=== PATIENT | male | born 1980 | race Caucasian/White ===

== ENCOUNTER 2022-03-02 08:10 | Outpatient (CLI) | payer OTHER, SELFPAY ==
[2022-03-02 08:45] LABS: Absolute Lymphocyte Count 2.18 X10^3/uL (0.83-4.51); Absolute Neutrophil Count 3.6 X10^3/uL (2.0-7.7); Basophil% 1.5 % (0-1); Eosinophil# 0.49 X10^3/uL; Eosinophils% 7.1 % (0-5); Hemoglobin 7.6 g/dL (13.0-16.5); Lymphocyte # 2.18 X10^3/ul (0.83-4.51); Lymphocyte % 31.7 % (19-41); Mean Corp Hgb Conc 26.2 g/dL (32-36); Mean Corpuscular Hgb 17.1 pg (27.0-32.0); Mean Corpuscular Volume 65.3 fL (80-94); Mean Platelet Vol. 10.2 fl (6.2-12.0); Monocyte# 0.51 X10^3/uL; Monocyte% 7.4 % (0-10); NRBC Flagged by Analyzer 0 % (0-5); Neutrophil # 3.58 X10^3/uL (2.7-7.7); POSITIVE MORPHOLOGY YES; Platelet Count 343 K/mm3 (150-450); Red Blood Count 4.44 M/mm3 (4.6-6.2); White Blood Count 6.9 K/mm3 (4.4-11.0)
[2022-03-02 09:15] LABS: Hemoglobin A1c 5.1 % (3.8-5.6)
[2022-03-02 09:21] LABS: Differential Indicated SCAN CRITERIA MET
[2022-03-02 10:31] LABS: Anisocytosis 2+; Differential Comment SCANNED; Erythrocyte Sedimentation Rate 7 mm/hr (0-20); Hypochromasia 2+; Macrocytosis 1+; Microcytosis 1+
[2022-03-04 09:24] LABS: Vitamin B12 177 pg/mL (211-911)
[2022-03-12 08:11] LABS: Angiotensin Convert Enzyme 29 U/L (14-82)
[2022-03-13 10:27] LABS: Arsenic 7245 < 1 ug/L (0-9); Lead, Blood < 1 ug/dL (0-4); Mercury, Blood 85324 < 1.0 ug/L (0.0-14.9); Vitamin B1, Thiamine 154.2 nmol/L (66.5-200.0)
== END 2022-03-02 23:59 | disposition home or self-care (01) ==
PROVIDERS: PCP Ophthalmology; Visit Provider Ophthalmology
DX: H47.013 Ischemic optic neuropathy, bilateral (principal)
CPT/HCPCS: 36415; 82164; 82175; 82607; 82746; 83036; 83655; 83825; 84425; 85025; 85652

== ENCOUNTER 2022-03-11 16:18 | Outpatient (CLI) | payer OTHER, SELFPAY ==
--- NOTE | 2022-03-11 16:23 | MRI_ITS ---
EXAM: MR HEAD WITHOUT AND WITH INTRAVENOUS CONTRAST CLINICAL INDICATION: ISCHEMIC OPTIC NEUROPATHY BILATERALLY TECHNIQUE: Multiplanar and multisequence MR images of the brain were obtained without and with intravenous contrast. This report was created using [employer] technology. CONTRAST: IV 18mL DOTAREM COMPARISON: None. FINDINGS: BRAIN AND EXTRA-AXIAL SPACES: Unremarkable. No intra- or extra-axial hemorrhage. No evidence of acute infarct. No intracranial mass or mass effect. There is preservation of the odom/white matter interface. Posterior fossa structures are unremarkable. Ventricles are appropriate for age. No hydrocephalus. Basal cisterns are patent. SELLA: Unremarkable. Normal sella turcica, pituitary gland, infundibular stalk, optic chiasm and hypothalamus. AUDITORY SYSTEM: Unremarkable. The internal auditory canals are patent. BONES/JOINTS: Unremarkable. No discrete lytic or blastic abnormalities. SINUSES: Unremarkable as visualized. Clear. MASTOID AIR CELLS: Unremarkable as visualized. Clear. ORBITS: Unremarkable as visualized. Both globes, extraocular muscles, optic nerves and retrobulbar fat appear unremarkable. VASCULATURE: Unremarkable as visualized. Normal flow voids in the major intracranial circulation. MRI/Brain W/WO Contrast IMPRESSION: Negative MRI brain without and with intravenous contrast. Electronically Signed: Pankaj Jurado MD at 4:20 EDT ,
== END 2022-03-11 23:59 | disposition home or self-care (01) ==
LOC: MRI 16:19
PROVIDERS: PCP Family Medicine; Visit Provider Ophthalmology
DX: H47.013 Ischemic optic neuropathy, bilateral (principal)
CPT/HCPCS: 70553; A9575

== ENCOUNTER → 2022-12-20 | Outpatient (CLI) | payer OTHER, SELFPAY ==
[2022-12-20 16:28] LABS: Estradiol 19.8 pg/mL
[2022-12-27 11:09] LABS: Testosterone, Free 5.17 ng/dL (5.00-21.00)
[2022-12-27 19:22] LABS: Sex Hormone-binding Globulin 38.8 nmol/L (16.5-55.9); Testosterone, % Free 1.32 % (1.50-4.20); Testosterone, Total 392 ng/dL (264-916)
== END | disposition home or self-care (01) ==
LOC: LAB 15:20
PROVIDERS: PCP Ophthalmology; Visit Provider Registered Nurse
DX: E29.1 Testicular hypofunction (principal)
CPT/HCPCS: 36415; 82670; 84270; 84402; 84403

== ENCOUNTER → 2023-05-14 | Outpatient (CLI) | payer OTHER, SELFPAY ==
[2023-05-14 17:22] LABS: Hematocrit 51.2 % (40-54); Hemoglobin 16.4 g/dL (13.0-16.5)
[2023-05-14 18:42] LABS: ALB/GLOB Ratio 1.1 RATIO (0.9-2.4); AST(SGOT) 21 U/L (15-37); Alanine Aminotransfer ALT/SGPT 31 U/L (16-61); Albumin, Serum 3.6 g/dL (3.2-5.0); Alkaline Phosphatase 101 U/L (45-117); Anion Gap 8 (5-15); BUN 16 mg/dL (7-18); Calcium,Total 8.8 mg/dL (8.5-10.1); Chloride 112 mmol/L (98-107); Cholesterol 113 mg/dL (200); Creatinine, Serum 0.89 mg/dL (0.70-1.30); EST Glomerular Filtration Rate 99 mL/min (>60); Est Glom Filt Rate - Afr Amer 119 mL/min (>60); Estradiol 32.2 pg/mL; Follicle Stimulating Hormone < 0.2 mIU/mL; Globulin 3.2 g/dL (2.2-4.2); Glucose 92 mg/dL (74-106); High Density Lipoprotein 39 mg/dL; Luteinizing Hormone < 0.2 mIU/mL; Potassium 3.5 mmol/L (3.5-5.1); Prolactin 8.2 ng/mL; Protein, Total 6.8 g/dL (6.4-8.2); Sodium Level 143 mmol/L (136-145); Thyroid Stim Hormone (TSH) 1.47 uIU/mL (0.358-3.74); Triglycerides 54 mg/dL; Very Low Density Lipoprotein 11 mg/dL (5-40)
[2023-05-21 17:07] LABS: DHEA Sulfate 67.6 ug/dL (71.6-375.4); Sex Hormone-binding Globulin 36.6 nmol/L (16.5-55.9); Testosterone, % Free 3.82 % (1.50-4.20); Testosterone, Total > 1500 ng/dL (264-916)
== END | disposition home or self-care (01) ==
LOC: LAB 17:01
PROVIDERS: PCP Ophthalmology; Referring Provider Registered Nurse; Visit Provider Registered Nurse
DX: E29.1 Testicular hypofunction (principal); R53.83 Other fatigue; R68.82 Decreased libido; R63.5 Abnormal weight gain; R35.0 Frequency of micturition; R39.16 Straining to void
CPT/HCPCS: 36415; 80053; 80061; 82627; 82670; 83001; 83002; 84146; 84270; 84402; 84403; 84443; 85014; 85018; 82626

== ENCOUNTER → 2023-12-04 | Outpatient (CLI) | payer OTHER, SELFPAY ==
--- OUTSIDE RECORDS SUMMARY | 2023-12-04 17:09 | XMS RPT_ITS | CCD ---
Author Name Unknown Address [id number] [place] [address] Organization [facility] Care Team Providers Care Calibration Checker Name Role Phone Gloria Angel MD Primary Care Provider [phone] DARRION BARBA Referring Unavailable JEANNE, GLORIA Andrew Primary Care Unavailable GLORIA ANGEL Primary Care Unavailable GLORIA ANGEL Primary Care Unavailable GERALD HECK Referring Unavailable GLORIA ANGEL Primary Care Unavailable GLORIA ANGEL Primary Care Unavailable MASCIGERALD Referring Unavailable GLORIA ANGEL Primary Care Unavailable GAYLA PRIEST Referring Unavailable MASCGERALD Irving Referring Unavailable GLORIA ANGEL Primary Care Unavailable GERALD HECK Referring Unavailable GLORIA ANGEL Primary Care Unavailable GERALD HECK Referring Unavailable JEANNE, GLORIA Andrew Primary Care Unavailable GERALD HECK Referring Unavailable GLORIA ANGEL Primary Care Unavailable GLORIA ANGEL Attending Unavailable GLORIA ANGEL Primary Care Unavailable Gloria Angel MD Primary Care Provider [phone] Allergies Allergy Classification Reported Allergen(s) Allergy Type Date of Onset Reaction(s) Facility (20 sources) ENVIRONMENTAL [Other] Propensity to adverse reactions [address] [place] [address] Work Phone: (1 source) OTHER; Translations: [OTHER] Propensity to adverse reactions (disorder) 5 [facility] Repository Medications Current Medications Medication Drug Class(es) Dates Sig (Normalized) Sig (Original) ferrous sulfate 325 mg oral tablet (20 sources) Start: 03-08-2022 End: 04-07-2022 take 1 tablet by mouth twice daily at mealtime ferrous sulfate 325 mg (65 mg iron) tablet Indications: Iron deficiency anemia, unspecified iron deficiency anemia type Take 1 tablet by mouth twice daily with meals. 60 tablet 5 03/08/2022 04/07/2022 Active Completed/Discontinued Medications Medication Drug Class(es) Dates Sig (Normalized) Sig (Original) albuterol 5 mg/ml inhalation solution (20 sources) beta2-Adrenergic Agonist Start: 03-02-2020 albuterol (PROVENTIL) 2.5 mg/0.5 mL nebulizer solution Indications: Extrinsic asthma without complication, unspecified asthma severity, unspecified whether persistent Use 0.5 mL via nebulizer every 4 hours as needed for Wheezing/Shortness of Breath. 3 Vial 3 03/02/2020 Active Problems Active Problems Problem Classification Problem Date Documented Da te Episodic/Chronic Asthma (20 sources) Allergic asthma; Translations: [Unspecified asthma, uncomplicated] Onset: 8 10-16-2018 Chronic Deficiency and other anemia (20 sources) Iron deficiency anemia due to blood loss; Translations: [Iron deficiency anemia secondary to blood loss (chronic)] Onset: 2 03-20-2022 Chronic Deficiency and other anemia (1 source) Iron deficiency anemia secondary to blood loss (chronic); Translations: [Iron deficiency anemia due to chronic blood loss] Onset: 2 Chronic Deficiency and other anemia (5 sources) Iron deficiency anemia; Translations: [Iron deficiency anemia, unspecified] Episodic Gastrointestinal hemorrhage (3 sources) Gastrointestinal hemorrhage; Translations: [Gastrointestinal hemorrhage, unspecified] Episodic Other and unspecified benign neoplasm (1 source) Lipoma (clinical); Translations: [Benign lipomatous neoplasm, unspecified] 06-12-2023 Episodic Other connective tissue disease (1 source) Mass of knee; Translations: [Other specified soft tissue disorders] Episodic Other gastrointestinal disorders (20 sources) Malabsorption - iron; Translations: [Intestinal malabsorption, unspecified] Onset: 2 03-20-2022 Chronic Other gastrointestinal disorders (1 source) Intestinal malabsorption, unspecified; Translations: [Iron malabsorption] Onset: 2 Chronic Other nervous system disorders (1 source) Abnormal sensation; Translations: [Other disturbances of skin sensation] Episodic Other screening for suspected conditions (not mental disorders or infectious disease) (1 source) Full blood count abnormal; Translations: [Other specified abnormal findings of blood chemistry] Episodic Other skin disorders (2 sources) Skin lesion; Translations: [Disorder of the skin and subcutaneous tissue, unspecified] Episodic Other upper respiratory disease (20 sources) Allergic rhinitis; Translations: [Allergic rhinitis, unspecified] Onset: 6 08-11-2017 Chronic Spondylosis; intervertebral disc disorders; other back problems (2 sources) Thoracic back pain; Translations: [Pain in thoracic spine] Onset: 3 Episodic Unclassified (1 source) Lumbar pain; Translations: [Lumbar pain] Onset: 3 Past or Other Problems Problem Classification Problem Date Documented Da te Episodic/Chronic Malaise and fatigue (5 sources) Fatigue; Translations: [Other fatigue] Onset: 10-31-2022 Episodic Nutritional deficiencies (20 sources) Cobalamin deficiency; Translations: [Deficiency of other specified B group vitamins] Onset: 03-20-2022 Episodic Viral infection (20 sources) Herpes simplex; Translations: [Herpesviral infection, unspecified] Onset: 01-28-2008 01-28-2008 Episodic Results Test Name Value Interpretation Reference Range Facil ity Vital Signs Date Time Vital Sign Value Performing Clinician Faci lity 06-12-2023 11:15-0400 Body weight 93.94 kg Gloria Angel MD Work Phone: [facility] 06-12-2023 11:15-0400 Diastolic blood pressure 80 mm[Hg] Gloria Angel MD Work Phone: [facility] 06-12-2023 11:15-0400 Heart rate 78 /min Gloria Angel MD Work Phone: [facility] 06-12-2023 11:15-0400 Respiratory rate 16 /min Gloria Angel MD Work Phone: [facility] 06-12-2023 11:15-0400 Systolic blood pressure 128 mm[Hg] Gloria Angel MD Work Phone: [facility] 03-27-2023 13:34-0400 Body temperature 97.81 [degF] Josh Pascual APRN.CNP Work Phone: [facility] 03-27-2023 13:34-0400 Body weight 98.34 kg [facility] CORRECTIONAL CASEWORK SPECIALIST.FOOT GATHERER Work Phone: [facility] 03-27-2023 13:34-0400 Diastolic blood pressure 86 mm[Hg] [facility] CORRECTIONAL CASEWORK SPECIALIST.FOOT GATHERER Work Phone: [facility] 03-27-2023 13:34-0400 Heart rate 86 /min Joshsaundra [facility] CORRECTIONAL CASEWORK SPECIALIST.FOOT GATHERER Work Phone: [facility] 03-27-2023 13:34-0400 Respiratory rate 18 /min [facility]saundra [facility] CORRECTIONAL CASEWORK SPECIALIST.FOOT GATHERER Work Phone: [facility] 03-27-2023 13:34-0400 SaO2% (BldA) [Mass fraction] 97 % [facility] CORRECTIONAL CASEWORK SPECIALIST.FOOT GATHERER Work Phone: [facility] 03-27-2023 13:34-0400 Systolic blood pressure 138 mm[Hg] [facility] CORRECTIONAL CASEWORK SPECIALIST.FOOT GATHERER Work Phone: [facility] 05-17-2022 14:40-0400 Body temperature 97.39 [degF] Gerald Masci DO Work Phone: [facility] 05-17-2022 14:40-0400 Body weight 87.54 kg Gerald Masci DO Work Phone: [facility] 05-17-2022 14:40-0400 Diastolic blood pressure 81 mm[Hg] Gerald Masci DO Work Phone: [facility] 05-17-2022 14:40-0400 Heart rate 65 /min Gerald Masci DO Work Phone: [facility] 05-17-2022 14:40-0400 Systolic blood pressure 123 mm[Hg] Gerald Masci DO Work Phone: [facility] 04-24-2022 14:42-0400 Body temperature 97.81 [degF] Treatment Wstr Work Phone: [facility] 04-24-2022 14:42-0400 Diastolic blood pressure 75 mm[Hg] Treatment Wstr Work Phone: [facility] 04-24-2022 14:42-0400 Heart rate 70 /min Treatment Wstr Work Phone: [facility] 04-24-2022 14:42-0400 Systolic blood pressure 135 mm[Hg] Treatment Wstr Work Phone: [facility] 04-19-2022 14:56-0400 Body temperature 98.4 [degF] Treatment Wstr Work Phone: [facility] 04-19-2022 14:56-0400 Diastolic blood pressure 78 mm[Hg] Treatment Wstr Work Phone: [facility] 04-19-2022 14:56-0400 Heart rate 75 /min Treatment Wstr Work Phone: [facility] 04-19-2022 14:56-0400 Respiratory rate 16 /min Treatment Wstr Work Phone: [facility] 04-19-2022 14:56-0400 SaO2% (BldA) [Mass fraction] 97 % Treatment Wstr Work Phone: [facility] 04-19-2022 14:56-0400 Systolic blood pressure 128 mm[Hg] Treatment Wstr Work Phone: [facility] 04-17-2022 15:11-0400 Body temperature 98.2 [degF] Treatment Wstr Work Phone: [facility] 04-17-2022 15:11-0400 Diastolic blood pressure 68 mm[Hg] Treatment Wstr Work Phone: [facility] 04-17-2022 15:11-0400 Systolic blood pressure 115 mm[Hg] Treatment Wstr Work Phone: [facility] 04-12-2022 15:22-0400 Body temperature 95.7 [degF] Treatment Wstr Work Phone: [facility] 04-12-2022 15:22-0400 Diastolic blood pressure 77 mm[Hg] Treatment Wstr Work Phone: [facility] 04-12-2022 15:22-0400 Heart rate 76 /min Treatment Wstr Work Phone: [facility] 04-12-2022 15:22-0400 Systolic blood pressure 118 mm[Hg] Treatment Wstr Work Phone: [facility] 04-08-2022 14:38-0400 Body temperature 97.5 [degF] Treatment Wstr Work Phone: [facility] 04-08-2022 14:38-0400 Diastolic blood pressure 68 mm[Hg] Treatment Wstr Work Phone: [facility] 04-08-2022 14:38-0400 Heart rate 60 /min Treatment Wstr Work Phone: [facility] 04-08-2022 14:38-0400 Respiratory rate 16 /min Treatment Wstr Work Phone: [facility] 04-08-2022 14:38-0400 Systolic blood pressure 112 mm[Hg] Treatment Wstr Work Phone: [facility] 04-08-2022 13:37-0400 Body height 177.8 cm Odalys Astrid PA-C Work Phone: [facility] 04-08-2022 13:37-0400 Body temperature 97.9 [degF] Odalys Astrid PA-C Work Phone: [facility] 04-08-2022 13:37-0400 Body weight 88.91 kg Odalys Astrid PA-C Work Phone: [facility] 04-08-2022 13:37-0400 Diastolic blood pressure 78 mm[Hg] Odalys Astrid PA-C Work Phone: [facility] 04-08-2022 13:37-0400 Heart rate 81 /min Odalys Astrid PA-C Work Phone: [facility] 04-08-2022 13:37-0400 SaO2% (BldA) [Mass fraction] 98 % Odalys Flax[place] PA-C Work Phone: [facility] 04-08-2022 13:37-0400 Systolic blood pressure 124 mm[Hg] Odalys Astrid PA-C Work Phone: [facility] 04-04-2022 15:00-0400 Body temperature 98.4 [degF] Treatment Wstr Work Phone: [facility] 04-04-2022 15:00-0400 Diastolic blood pressure 72 mm[Hg] Treatment Wstr Work Phone: [facility] 04-04-2022 15:00-0400 Heart rate 75 /min Treatment Wstr Work Phone: [facility] 04-04-2022 15:00-0400 Systolic blood pressure 118 mm[Hg] Treatment Wstr Work Phone: [facility] 04-02-2022 15:06-0400 Body temperature 98.01 [degF] Treatment Wstr Work Phone: [facility] 04-02-2022 15:06-0400 Diastolic blood pressure 77 mm[Hg] Treatment Wstr Work Phone: [facility] 04-02-2022 15:06-0400 Heart rate 82 /min Treatment Wstr Work Phone: [facility] 04-02-2022 15:06-0400 SaO2% (BldA) [Mass fraction] 99 % Treatment Wstr Work Phone: [facility] 04-02-2022 15:06-0400 Systolic blood pressure 128 mm[Hg] Treatment Wstr Work Phone: [facility] 03-26-2022 14:43-0400 Body temperature 97.7 [degF] Injection Wstr Work Phone: [facility] 03-26-2022 14:43-0400 Diastolic blood pressure 69 mm[Hg] Injection Wstr Work Phone: [facility] 03-26-2022 14:43-0400 Heart rate 81 /min Injection Wstr Work Phone: [facility] 03-26-2022 14:43-0400 Systolic blood pressure 126 mm[Hg] Injection Wstr Work Phone: [facility] 03-08-2022 13:58-0400 Body weight 86.18 kg Odalys Astrid PA-C Work Phone: [facility] 03-08-2022 13:58-0400 Diastolic blood pressure 84 mm[Hg] Odalys [place] PA-C Work Phone: [facility] 03-08-2022 13:58-0400 Heart rate 78 /min Odalys Astrid PA-C Work Phone: [facility] 03-08-2022 13:58-0400 SaO2% (BldA) [Mass fraction] 100 % Odalys Astrid PA-C Work Phone: [facility] 03-08-2022 13:58-0400 Systolic blood pressure 122 mm[Hg] Odalys Astrid PA-C Work Phone: [facility] 03-06-2022 16:24-0400 Body weight 86.36 kg Mitra Tannhof CORRECTIONAL CASEWORK SPECIALIST.FOOT GATHERER Work Phone: [facility] 03-06-2022 16:24-0400 Diastolic blood pressure 82 mm[Hg] Mitra Tannhof CORRECTIONAL CASEWORK SPECIALIST.FOOT GATHERER Work Phone: [facility] 03-06-2022 16:24-0400 Heart rate 78 /min Mitra Tannhof CORRECTIONAL CASEWORK SPECIALIST.FOOT GATHERER Work Phone: [facility] 03-06-2022 16:24-0400 Respiratory rate 16 /min Mitra Tannhof CORRECTIONAL CASEWORK SPECIALIST.FOOT GATHERER Work Phone: [facility] 03-06-2022 16:24-0400 Systolic blood pressure 138 mm[Hg] Mitra Tannhof CORRECTIONAL CASEWORK SPECIALIST.FOOT GATHERER Work Phone: [facility] 02-15-2022 14:19-0400 Body height 177.8 cm Janeth Phillip MD Work Phone: [facility] 02-15-2022 14:19-0400 Body temperature 97.39 [degF] Janeth Phillip MD Work Phone: [facility] 02-15-2022 14:19-0400 Body weight 85.37 kg Janeth Phillip MD Work Phone: [facility] 02-15-2022 14:19-0400 Diastolic blood pressure 80 mm[Hg] Janeth Phillip MD Work Phone: [facility] 02-15-2022 14:19-0400 Heart rate 88 /min Janeth Phillip MD Work Phone: [facility] 02-15-2022 14:19-0400 SaO2% (BldA) [Mass fraction] 99 % Janeth Phillip MD Work Phone: [facility] 02-15-2022 14:19-0400 Systolic blood pressure 130 mm[Hg] Janeth Phillip MD Work Phone: [facility] Encounters Encounter Date Encounter Type Care Provider Facility Start: 09-15-2023 ambulatory Gloria bell MD Work Phone: [facility] Procedures Date Procedure Procedure Detail Performing Clinician Start: 10-31-2022 Antibody screen DARRION BARBA Plan of Treatment Date Care Activity Detail Author Start: 03-28-2032 Colonoscopy COLONOSCOPY [facility] Start: 03-28-2032 COLORECTAL CANCER SCREENING COLORECTAL CANCER SCREENING [facility] Start: 03-07-2025 DIABETES SCREEN DIABETES SCREEN [facility] Start: 03-07-2025 Diabetes Screening Diabetes Screenin g [facility] Start: 06-12-2024 ANNUAL PCP TEAM MANAGER INTERNET FLORENTIN DISEASE VISIT ANNUAL PCP TEAM CHRONIC DISEASE VISIT [facility] Start: 06-12-2024 HEPATITIS C SCREENING HEPATITIS C [facility] Immunizations Immunization Date Immunization Notes Care Provider Fa michelle 09-21-2020 influenza virus vaccine, unspecified formulation Gloria Angel MD Work Phone: [facility] 10-24-2012 influenza virus vaccine, unspecified formulation Janeth Phillip MD Work Phone: [facility] Payers Date Payer Category Payer Private Health Insurance [employer] A ETNA CHOICE POS II [id number] 2011-Present [phone] [address] [place] [address] POS [id number] 2011 Private Health Insurance [id number] 2011 Private Health Insurance [id number] Social History Date Type Detail Facility Start: 01-21-2015 End: 03-27-2023 Tobacco smoking status NHIS Ex-smoker [facility] Work Phone: Start: 09-23-2003 End: 09-23-2011 History of tobacco use Current smoker [facility] Work Phone: Start: 09-23-2003 End: 09-23-2011 History of tobacco use Cigarette Smoker [facility] Work Phone: Start: 01-21-2015 End: 06-10-2023 Cigarettes smoked current (pack per day) - Reported 0.25 [facility] Start: 01-21-2015 End: 03-27-2023 Tobacco use and exposure Smokeless tobacco non-user [facility] Work Phone: Start: 02-15-2022 End: 03-08-2022 Alcohol intake Current non-drinker of alcohol (finding) [facility] Start: 1980 Sex Assigned At Not on file [facility] Start: 02-05-2022 End: 05-28-2022 Exposure to SARS-CoV-2 (event) Not sure [facility] Start: 03-05-2022 History SDOH Alcohol Frequency 2 [facility] Start: 03-05-2022 History SDOH Alcohol Std Drinks 1 [facility] Start: 03-05-2022 History SDOH Social Connections Phone 5 [facility] Start: 03-05-2022 History SDOH Social Connections Yazidism 3 [facility] Start: 03-05-2022 History SDOH Social Connections Living 8 [facility] Start: 04-01-2022 End: 06-12-2023 Alcohol intake Current drinker of alcohol (finding) [facility] Start: 03-28-2022 History SDOH Alcohol Comment rarely [facility] Start: 03-27-2023 Tobacco Comment ON RARE OCCASIONS [facility] Start: 06-10-2023 End: 06-12-2023 Social connection and isolation panel [facility] Do you belong to any clubs or organizations such as baptist groups, unions, fraternal or athletic groups, or school groups? No [facility] Are you now , , , , never or living with a partner? [facility] How often to you hav e a drink containing alcohol? 2-4 times a month [facility] How many standard dr inks containing alcohol do you have on a typical day? 1 or 2 [facility] How often do you hav e 6 or more drinks on 1 occasion? Never [facility] How hard is it for y ou to pay for the very basics like food, housing, medical care, and heating Somewhat hard [facility] Adult Depression Scr eening Assessment 0 [facility] Work Phone: Do you feel stress - tense, restless, nervous, or anxious, or unable to sleep at night because your mind is troubled all the time - these days [OSQ] Not at all [facility] (I/We) worried wheth er (my/our) food would run out before (I/we) got money to buy more. Never true [facility] Clinical Notes 02-15-2022 to 09-15-2023 Telephone Encounter - Claudio Lyman APRN.CNP - 09/15/2023 9:57 AM EDTTelephone Encounter - Yanelis Regan Ma - 09/15/2023 9:43 AM EDTTelephone Encounter - Angie Rubin LPN - 09/03/2023 4:52 PM EDT Note Date & Type Note Facility 09-15-2023 Miscellaneous Notes Sent The following approved medication requests have been transmitted electronically. Requested Prescriptions Signed Prescriptions Disp Refills fluticasone (FLONASE) 50 mcg/actuation nasal spray 16 mL 11 Sig: Use 2 Sprays in each nostril once daily. Claudio Lyman APRN.CNP documented in this encounter [facility] 09-15-2023 Miscellaneous Notes Pt notified via [employer] to check with pharmacy for refills. This was refilled for a year supply 09/04/23. Yanelis Regan Ma documented in this encounter [facility] 09-03-2023 Miscellaneous Notes Patient requests via MyChart refills as follows: Requested Prescriptions Pending Prescriptions Disp Refills fluticasone-salmeterol (ADVAIR DISKUS) 500-50 mcg/dose dsdv 60 Each 2 Sig: Inhale 1 Puff as instructed two times a day. PRATIMA: 06/12/23 NOV: None scheduled Angie Rubin LPN documented in this encounter [facility] 07-01-2023 Miscellaneous Notes PRATIMA: 06/12/23 with PCP NOV: No FM F/U scheduled at this time Last refill: 04/15/23 With 28 and 0 refills Nora Jacobsen MA documented in this encounter [facility] 06-12-2023 Note HNO ID: [id number] Author: Gloria Angel MD Service: ? Author Type: Physician Type: Progress Notes Filed: 06/12/2023 5:40 PM Note Text: Chief Complaint Patient presents with: Lump: Left side abdomen x 1-2 weeks HPI Mohit Flanagan is a 43 year old male who presents here today for lump. He has to work 25 years to retire, has 22 years in already but thinks he will work longer than 25 years. Pt c/o lump to left side abdomen just under rib cage that he noticed 1-2 weeks. It has not changed in size, no redness, no drainage, no pain. He stated about a week before he noticed the lump he had some discomfort around the belt line, would not call it pain. He states he wears a vest and sits a lot while at work so figured it was from that. The vest he wears does go around the area with the lump. He denies doing anything different with his job that would trigger the lump to start, has been wearing the vest for the last 22 years. Past medical history, appointments, medications, allergies reviewed. Previous Medical History PAST MEDICAL HISTORY Diagnosis Date Anemia 03/08/2022 Environmental allergies Patella fracture 2012 Unspecified asthma(493.90) Previous Surgical History PAST SURGICAL HISTORY Procedure Laterality Date 2D ECHO (EXEP) 05/2016 EF=62% no valve issues COLONOSCOPY 03/28/2022 repeat in 10 years EGD W/O BRSH SPEC VARICIES INJ 03/28/2022 FRACTURE SURGERY PAST SURGICAL HISTORY OF 1995 ORIF right femur PAST SURGICAL HISTORY OF 2003 ORIF right ankle, plate and several screws STRESS TEST 05/2016 WNL Family History FAMILY HISTORY Problem Relation Age of Onset Hypertension Mother Hypertension Father Lipids Father Asthma Father Alzheimer's Disease Maternal Grandmother Dementia Maternal Grandmother Prostate Cancer Maternal Grandfather other (cancer bone) Maternal Grandfather Asthma Paternal Grandmother Patient Allergies ALLERGIES Allergen Reactions Environmental [Othe* ANIMALS, DUST, GRASS Current Medications Current Outpatient Medications on File Prior to Visit Medication Sig fluticasone-salmeterol (ADVAIR DISKUS) 500-50 mcg/dose dsdv Inhale 1 Puff as instructed twice daily. cyclobenzaprine (FLEXERIL) 10 mg tablet Take 1 tablet by mouth three times daily as needed for muscle spasm. SUMAtriptan (IMITREX) 50 mg tablet Take one tablet with onset of symptoms, can repeat in 2 hours, max dose is 200 mg/day. cyanocobalamin 1,000 mcg/mL Inject 1 mL intramuscularly once every month. Insulin Syringe-Needle U-100 (BD INSULIN SYRINGE) 1 mL 25 x 1 syrg 1 Each once every month. folic acid 1 mg tablet TAKE 1 TABLET BY MOUTH EVERY DAY ferrous sulfate 325 mg (65 mg iron) tablet Take 325 mg by mouth twice daily. (Patient not taking: Reported on 03/27/2023) fluticasone (FLONASE) 50 mcg/actuation nasal spray SPRAY 2 SPRAYS INTO EACH NOSTRIL EVERY DAY triamcinolone (KENALOG) 0.025 % ointment Apply 1 application to affected area twice daily as needed. albuterol (PROVENTIL) 2.5 mg/0.5 mL nebulizer solution Use 0.5 mL via nebulizer every 4 hours as needed for Wheezing/Shortness of Breath. albuterol HFA (PROAIR HFA) 90 mcg/actuation inhaler Inhale 2 Puffs as instructed. Take 2 puffs every 4 hours as needed and 15 minutes prior to exercise No current facility-administered medications on file prior to visit. Social History Social History Tobacco Use Smoking status: Former Packs/day: 0.25 Years: 8.00 Total pack years: 2.00 Types: Cigarettes Start date: 09/23/2003 Quit date: 09/23/2011 Years since quittin.7 Smokeless tobacco: Never Tobacco comments: ON RARE OCCASIONS Vaping Use Vaping Use: Never used Substance Use Topics Alcohol use: Yes Comment: rarely Drug use: No EXAM: BP 128/80 Pulse 78 Resp 16 Wt 93.9 kg (207 lb 1.6 oz) BMI 29.72 kg/m? General Appearance: Well appearing, alert, in no acute distress, well-hydrated, well nourished.. Abdomen: fullness to the fatty layer, possible lipoma or trauma from wearing vest. Ill defined areas approx 3x4 cm, not tender Health Maintenance List HEPATITIS B(1 of 3 - 3-dose series) Never done COVID-19 VACCINE(1) Never done PNEUMOCOCCAL(1 - PCV) Never done HEPATITIS C SCREENING Never done HIV SCREENING Never done DTAP,TDAP,TD(1 - Tdap) Never done LIPID SCREEN due on 01/05/2019 DEPRESSION ASSESSMENT Never done ANNUAL PCP TEAM CHRONIC DISEASE VISIT due on 03/06/2023 INFLUENZA(1) due on 07/25/2023 DIABETES SCREEN due on 03/07/2025 COLORECTAL CANCER SCREENING due on 03/28/2032 SPIROMETRY Completed HPV VACCINE Aged Out Data reviewed None ASSESSMENT/PLAN: 1. Lipoma, unspecified site - ICD9: 214.9, ICD10: D17.9 No treatment Continue to monitor, notify if any changes Follow up as needed. I agree with the Chief Complaint, ROS, and Past Histories independently gathered by the clinical computer support specialist instructor and the remaining scribed note accu (more content not included)... [facility] 06-12-2023 History of Presen t illness Narrative Chief Complaint Patient presents with: Lump: Left side abdomen x 1-2 weeks HPI Mohitcait Flanagan is a 43 year old male who presents here today for lump. He has to work 25 years to retire, has 22 years in already but thinks he will work longer than 25 years. Pt c/o lump to left side abdomen just under rib cage that he noticed 1-2 weeks. It has not changed in size, no redness, no drainage, no pain. He stated about a week before he noticed the lump he had some discomfort around the belt line, would not call it pain. He states he wears a vest and sits a lot while at work so figured it was from that. The vest he wears does go around the area with the lump. He denies doing anything different with his job that would trigger the lump to start, has been wearing the vest for the last 22 years. Past medical history, appointments, medications, allergies reviewed. Previous Medical History PAST MEDICAL HISTORY Diagnosis Date Anemia 03/08/2022 Environmental allergies Patella fracture 2012 Unspecified asthma(493.90) Previous Surgical History PAST SURGICAL HISTORY Procedure Laterality Date 2D ECHO (EXEP) 05/2016 EF=62% no valve issues COLONOSCOPY 03/28/2022 repeat in 10 years EGD W/O BRSH SPEC VARICIES INJ 03/28/2022 FRACTURE SURGERY PAST SURGICAL HISTORY OF 1995 ORIF right femur PAST SURGICAL HISTORY OF 2003 ORIF right ankle, plate and several screws STRESS TEST 05/2016 WNL Family History FAMILY HISTORY Problem Relation Age of Onset Hypertension Mother Hypertension Father Lipids Father Asthma Father Alzheimer's Disease Maternal Grandmother Dementia Maternal Grandmother Prostate Cancer Maternal Grandfather other (cancer bone) Maternal Grandfather Asthma Paternal Grandmother Patient Allergies ALLERGIES Allergen Reactions Environmental [Othe* ANIMALS, DUST, GRASS Current Medications Current Outpatient Medications on File Prior to Visit Medication Sig fluticasone-salmeterol (ADVAIR DISKUS) 500-50 mcg/dose dsdv Inhale 1 Puff as instructed twice daily. cyclobenzaprine (FLEXERIL) 10 mg tablet Take 1 tablet by mouth three times daily as needed for muscle spasm. SUMAtriptan (IMITREX) 50 mg tablet Take one tablet with onset of symptoms, can repeat in 2 hours, max dose is 200 mg/day. cyanocobalamin 1,000 mcg/mL Inject 1 mL intramuscularly once every month. Insulin Syringe-Needle U-100 (BD INSULIN SYRINGE) 1 mL 25 x 1 syrg 1 Each once every month. folic acid 1 mg tablet TAKE 1 TABLET BY MOUTH EVERY DAY ferrous sulfate 325 mg (65 mg iron) tablet Take 325 mg by mouth twice daily. (Patient not taking: Reported on 03/27/2023) fluticasone (FLONASE) 50 mcg/actuation nasal spray SPRAY 2 SPRAYS INTO EACH NOSTRIL EVERY DAY triamcinolone (KENALOG) 0.025 % ointment Apply 1 application to affected area twice daily as needed. albuterol (PROVENTIL) 2.5 mg/0.5 mL nebulizer solution Use 0.5 mL via nebulizer every 4 hours as needed for Wheezing/Shortness of Breath. albuterol HFA (PROAIR HFA) 90 mcg/actuation inhaler Inhale 2 Puffs as instructed. Take 2 puffs every 4 hours as needed and 15 minutes prior to exercise No current facility-administered medications on file prior to visit. Social History Social History Tobacco Use Smoking status: Former Packs/day: 0.25 Years: 8.00 Total pack years: 2.00 Types: Cigarettes Start date: 09/23/2003 Quit date: 09/23/2011 Years since quittin.7 Smokeless tobacco: Never Tobacco comments: ON RARE OCCASIONS Vaping Use Vaping Use: Never used Substance Use Topics Alcohol use: Yes Comment: rarely Drug use: No EXAM: BP 128/80 Pulse 78 Resp 16 Wt 93.9 kg (207 lb 1.6 oz) BMI 29.72 kg/m General Appearance: Well appearing, alert, in no acute distress, well-hydrated, well nourished.. Abdomen: fullness to the fatty layer, possible lipoma or trauma from wearing vest. Ill defined areas approx 3x4 cm, not tender Health Maintenance List HEPATITIS B(1 of 3 - 3-dose series) Never done COVID-19 VACCINE(1) Never done PNEUMOCOCCAL(1 - PCV) Never done HEPATITIS C SCREENING Never done HIV SCREENING Never done DTAP,TDAP,TD(1 - Tdap) Never done LIPID SCREEN due on 01/05/2019 DEPRESSION ASSESSMENT Never done ANNUAL PCP TEAM CHRONIC DISEASE VISIT due on 03/06/2023 INFLUENZA(1) due on 07/25/2023 DIABETES SCREEN due on 03/07/2025 COLORECTAL CANCER SCREENING due on 03/28/2032 SPIROMETRY Completed HPV VACCINE Aged Out Data reviewed None ASSESSMENT/PLAN: 1. Lipoma, unspecified site - ICD9: 214.9, ICD10: D17.9 No treatment Continue to monitor, notify if any changes Follow up as needed. I agree with the Chief Complaint, ROS, and Past Histories independently gathered by the clinical computer support specialist instructor and the remaining scribed note accurately describes my personal service to the patient. Medical Decision Making: Problems: Low: Acute, uncomplicated illness or injury Risk: Low: Low risk from testing/treatment Medical Decision Making Level: 3 - Low Gloria Angel MD The documentation for this note was completed by Yanelis Regan Ma acting as scribe for Gloria Angel MD. June 12, 2023 11:24 AM. Yanelis Regan Ma documented in this encounter [facility] 04-15-2023 Note HNO ID: [id number] Author: RT Linnea(Aftab) Service: ? Author Type: Supervisor Pressing Department Type: Progress Notes Filed: 04/15/2023 4:30 PM Note Text: Radiology Service Progress Note PATIENT NAME: Mohit Flanagan DATE OF SERVICE: April 15, 2023 TIME: 4:22 PM PATIENT IDENTITY VERIFICATION COMPLETED USING TWO (2) IDENTIFIERS: Name and Date of confirmed by patient verbally. FALL SCREENING: Has the patient had 2 falls in the last year or 1 fall with injury or currently using an Ambulatory Assistive Device (Walker, Cane, Wheelchair, Crutches, etc.)? No PATIENT GENDER DATA: Male PATIENT RELEVANT IMPLANT DATA REVIEWED: Yes RADIOLOGY DEPARTMENT: General X-ray: Exam(s) Completed: Spine X-Ray(s): Thoracic and Lumbar AP / LAT / L5-S1 No L%-S1 ordered PERIPHERAL IV DATA: Not applicable SIGNED BY: RT Linnea(R) April 15, 2023 4:22 PM [facility] 04-15-2023 Note HNO ID: [id number] Author: Darrion Barba APRN.FOOT GATHERER Service: ? Author Type: Nurse Practitioner Type: Progress Notes Filed: 04/15/2023 5:17 PM Note Text: This note was created using NoteWriter. Subjective Mohit Flanagan is a 43 year old male. 43 year old male with PMH asthma, anemia and HSV presents for complaints of back pain. Acute onset 2 to 3 weeks ago States that he recalls States he felt a pull and pain with twisting But went away as quick as it came on States that evening he woke up with pain. Locates pain in diffuse left upper and lower backs Alternates between the two States seen here Placed on prednisone and muscle relaxer States prednisone and flexeril seemed to help. States he rode on the motorcycle yesterday. Endorses the pain remains. He cannot get in to primary care until mid April Family wanted me to come back again and get checked out He is requesting xrays. Denies saddle anesthesia, unilateral weakness, IV drug usage or gait disturbance. He is requesting refills on Abreva and Advair The history is provided by the patient. No english language learner teacher was used. Back Pain This is a new problem. The current episode started more than 1 week ago. The problem occurs constantly. The problem has not changed since onset.The pain is associated with twisting. The pain is present in the lumbar spine and thoracic spine. The quality of the pain is described as stabbing. The pain does not radiate. The pain is at a severity of 5/10. The pain is moderate. The symptoms are aggravated by bending, twisting and certain positions. The pain is The same all the time. Stiffness is present All day. Pertinent negatives include no chest pain, no fever, no numbness, no weight loss, no headaches, no abdominal pain, no abdominal swelling, no bowel incontinence, no perianal numbness, no bladder incontinence, no dysuria, no pelvic pain, no leg pain, no paresthesias, no paresis, no tingling and no weakness. He has tried muscle relaxants for the symptoms. The treatment provided moderate relief. Risk factors include obesity, lack of exercise and poor posture. PAST MEDICAL HISTORY Diagnosis Date Anemia 03/08/2022 Environmental allergies Patella fracture 2012 Unspecified asthma(493.90) PAST SURGICAL HISTORY Procedure Laterality Date 2D ECHO (EXEP) 05/2016 EF=62% no valve issues COLONOSCOPY 03/28/2022 repeat in 10 years EGD W/O BRSH SPEC VARICIES INJ 03/28/2022 FRACTURE SURGERY PAST SURGICAL HISTORY OF 1995 ORIF right femur PAST SURGICAL HISTORY OF 2003 ORIF right ankle, plate and several screws STRESS TEST 05/2016 WNL ALLERGIES Environmental [Other] MEDICATIONS SUMAtriptan (IMITREX) 50 mg tablet Take one tablet with onset of symptoms, can repeat in 2 hours, max dose is 200 mg/day. cyanocobalamin 1,000 mcg/mL Inject 1 mL intramuscularly once every month. Insulin Syringe-Needle U-100 (BD INSULIN SYRINGE) 1 mL 25 x 1 syrg 1 Each once every month. folic acid 1 mg tablet TAKE 1 TABLET BY MOUTH EVERY DAY fluticasone (FLONASE) 50 mcg/actuation nasal spray SPRAY 2 SPRAYS INTO EACH NOSTRIL EVERY DAY triamcinolone (KENALOG) 0.025 % ointment Apply 1 application to affected area twice daily as needed. albuterol (PROVENTIL) 2.5 mg/0.5 mL nebulizer solution Use 0.5 mL via nebulizer every 4 hours as needed for Wheezing/Shortness of Breath. albuterol HFA (PROAIR HFA) 90 mcg/actuation inhaler Inhale 2 Puffs as instructed. Take 2 puffs every 4 hours as needed and 15 minutes prior to exercise fluticasone-salmeterol (ADVAIR DISKUS) 500-50 mcg/dose dsdv Inhale 1 Puff as instructed twice daily. valACYclovir (VALTREX) 1 gram Take 2 tablets by mouth twice daily for 1 day. predniSONE (DELTASONE) 10 mg tablet Take 6 tabs for 3 days, then 4 tabs for 3 days, then 2 tabs for 3 days then 1 tab for 3 days with food. cyclobenzaprine (FLEXERIL) 10 mg tablet Take 1 tablet by mouth three times daily as needed for muscle spasm. ferrous sulfate 325 mg (65 mg iron) tablet Take 325 mg by mouth twice daily. (Patient not taking: Reported on 03/27/2023) FAMILY HISTORY Problem Relation Age of Onset Hypertension Mother Hypertension Father Lipids Father Asthma Father Alzheimer's Disease Maternal Grandmother Dementia Maternal Grandmother Prostate Cancer Maternal Grandfather other (cancer bone) Maternal Grandfather Asthma Paternal Grandmother Social History Tobacco Use Smoking status: Former Packs/day: 0.25 Years: 8.00 Pack years: 2.00 Types: Cigarettes Start date: 09/23/2003 Quit date: 09/23/2011 Years since quittin.5 Smokeless tobacco: Never Tobacco comments: ON RARE OCCASIONS Vaping Use Vaping Use: Never used Substance Use Topics Alcohol use: Yes Comment: rarely Drug use: No Review of Systems Constitutional: Negative for activity change, appetite change, chills, fever and weight loss. Eyes: Negative for pain, discharg (more content not included)... [facility] 03-31-2023 Miscellaneous Notes Patient has been identified by name and date of : Yes Requested Prescriptions Pending Prescriptions Disp Refills folic acid 1 mg tablet [Pharmacy Med Name: FOLIC ACID 1 MG TABLET] 90 tablet 3 Sig: TAKE 1 TABLET BY MOUTH EVERY DAY RX INSTRUCTIONS: Patient aware RX will be sent to pharmacy. No need to notify patient. Darlene Camp LPN documented in this encounter [facility] 03-27-2023 Note HNO ID: [id number] Author: Josh Pascual APRN.FOOT GATHERER Service: ? Author Type: Nurse Practitioner Type: Progress Notes Filed: 03/27/2023 2:08 PM Note Text: Subjective HPI Nontoxic-appearing male presents urgent care chief complaint back pain. Duration of symptoms 2 days. Associated symptoms mid back pain. Patient states he was getting ready for bed 2 days ago and noticed a sharp pain in his back. States pain did resolve but he did wake up in the middle the night with increased back pain. History of back pain similar to this. Has been using Tylenol NSAIDs this is helped some. Her pain currently is 3 out of 10. Denies any trauma fevers saddle anesthesia or incontinence. Denies any fever body aches chills productive cough chest pain shortness of breath pleuritic pain hemoptysis nausea vomiting abdominal pain change in bowel or bladder habits. Past medical history prescription medication use and allergies reviewed. .Patient presents with: Pain: Pt reported intermittent mid back pain x2 days, denied chest pain, fall, injury. PAST MEDICAL HISTORY Diagnosis Date Anemia 03/08/2022 Environmental allergies Patella fracture 2013 Unspecified asthma(493.90) PAST SURGICAL HISTORY Procedure Laterality Date 2D ECHO (EXEP) 05/2016 EF=62% no valve issues COLONOSCOPY 03/28/2022 repeat in 10 years EGD W/O RUST SPEC VARICIES INJ 03/28/2022 FRACTURE SURGERY PAST SURGICAL HISTORY OF 1995 ORIF right femur PAST SURGICAL HISTORY OF 2003 ORIF right ankle, plate and several screws STRESS TEST 05/2016 WNL ALLERGIES Environmental [Other] MEDICATIONS SUMAtriptan (IMITREX) 50 mg tablet Take one tablet with onset of symptoms, can repeat in 2 hours, max dose is 200 mg/day. cyanocobalamin 1,000 mcg/mL Inject 1 mL intramuscularly once every month. Insulin Syringe-Needle U-100 (BD INSULIN SYRINGE) 1 mL 25 x 1 syrg 1 Each once every month. folic acid 1 mg tablet Take 1 tablet by mouth once daily. fluticasone (FLONASE) 50 mcg/actuation nasal spray SPRAY 2 SPRAYS INTO EACH NOSTRIL EVERY DAY fluticasone-salmeterol (ADVAIR DISKUS) 500-50 mcg/dose dsdv Inhale 1 Puff as instructed twice daily. albuterol (PROVENTIL) 2.5 mg/0.5 mL nebulizer solution Use 0.5 mL via nebulizer every 4 hours as needed for Wheezing/Shortness of Breath. albuterol HFA (PROAIR HFA) 90 mcg/actuation inhaler Inhale 2 Puffs as instructed. Take 2 puffs every 4 hours as needed and 15 minutes prior to exercise ferrous sulfate 325 mg (65 mg iron) tablet Take 325 mg by mouth twice daily. (Patient not taking: Reported on 03/27/2023) triamcinolone (KENALOG) 0.025 % ointment Apply 1 application to affected area twice daily as needed. FAMILY HISTORY Problem Relation Age of Onset Hypertension Mother Hypertension Father Lipids Father Asthma Father Alzheimer's Disease Maternal Grandmother Dementia Maternal Grandmother Prostate Cancer Maternal Grandfather other (cancer bone) Maternal Grandfather Asthma Paternal Grandmother Social History Tobacco Use Smoking status: Former Packs/day: 0.25 Years: 8.00 Pack years: 2.00 Types: Cigarettes Start date: 09/23/2003 Quit date: 09/23/2011 Years since quittin.5 Smokeless tobacco: Never Tobacco comments: ON RARE OCCASIONS Vaping Use Vaping Use: Never used Substance Use Topics Alcohol use: Yes Comment: rarely Drug use: No BP 138/86 Pulse 86 Temp 36.6 ?C (97.8 ?F) (Tympanic) Resp 18 Wt 98.3 kg (216 lb 12.8 oz) SpO2 97% BMI 31.11 kg/m? Review of Systems Constitutional: Negative for chills, fever and malaise/fatigue. HENT: Negative for congestion, ear discharge, ear pain, sinus pain and sore throat. Eyes: Negative for blurred vision, pain, discharge and redness. Respiratory: Negative for cough, hemoptysis, sputum production, shortness of breath, wheezing and stridor. Cardiovascular: Negative for chest pain. Gastrointestinal: Negative for abdominal pain, diarrhea, nausea and vomiting. Musculoskeletal: Positive for back pain. Negative for falls, joint pain, myalgias and neck pain. Skin: Negative for itching and rash. Neurological: Negative for dizziness and headaches. Objective Physical Exam Constitutional: General: He is not in acute distress. Appearance: He is not diaphoretic. HENT: Head: Normocephalic. Nose: Nose normal. Eyes: Conjunctiva/sclera: Conjunctivae normal. Pupils: Pupils are equal, round, and reactive to light. Cardiovascular: Rate and Rhythm: Normal rate and regular rhythm. Heart sounds: Normal heart sounds. Pulmonary: Effort: Pulmonary effort is normal. No tachypnea, accessory muscle usage or respiratory distress. Breath sounds: Normal breath sounds. No stridor. No wheezing, rhonchi or rales. Musculoskeletal: Cervical back: Normal and normal range of motion. Thoracic back: Tenderness present. No swelling, edema, deformity, signs of trauma, lacerations or bony tenderness. (more content not included)... [facility] 03-27-2023 History of Presen t illness Narrative Images from the original note were not included. Subjective HPI Nontoxic-appearing male presents urgent care chief complaint back pain. Duration of symptoms 2 days. Associated symptoms mid back pain. Patient states he was getting ready for bed 2 days ago and noticed a sharp pain in his back. States pain did resolve but he did wake up in the middle the night with increased back pain. History of back pain similar to this. Has been using Tylenol NSAIDs this is helped some. Her pain currently is 3 out of 10. Denies any trauma fevers saddle anesthesia or incontinence. Denies any fever body aches chills productive cough chest pain shortness of breath pleuritic pain hemoptysis nausea vomiting abdominal pain change in bowel or bladder habits. Past medical history prescription medication use and allergies reviewed. .Patient presents with: Pain: Pt reported intermittent mid back pain x2 days, denied chest pain, fall, injury. PAST MEDICAL HISTORY Diagnosis Date Anemia 03/08/2022 Environmental allergies Patella fracture 2012 Unspecified asthma(493.90) PAST SURGICAL HISTORY Procedure Laterality Date 2D ECHO (EXEP) 05/2016 EF=62% no valve issues COLONOSCOPY 03/28/2022 repeat in 10 years EGD W/O BRSH SPEC VARICIES INJ 03/28/2022 FRACTURE SURGERY PAST SURGICAL HISTORY OF 1995 ORIF right femur PAST SURGICAL HISTORY OF 2003 ORIF right ankle, plate and several screws STRESS TEST 05/2016 WNL ALLERGIES Environmental [Other] MEDICATIONS SUMAtriptan (IMITREX) 50 mg tablet Take one tablet with onset of symptoms, can repeat in 2 hours, max dose is 200 mg/day. cyanocobalamin 1,000 mcg/mL Inject 1 mL intramuscularly once every month. Insulin Syringe-Needle U-100 (BD INSULIN SYRINGE) 1 mL 25 x 1 syrg 1 Each once every month. folic acid 1 mg tablet Take 1 tablet by mouth once daily. fluticasone (FLONASE) 50 mcg/actuation nasal spray SPRAY 2 SPRAYS INTO EACH NOSTRIL EVERY DAY fluticasone-salmeterol (ADVAIR DISKUS) 500-50 mcg/dose dsdv Inhale 1 Puff as instructed twice daily. albuterol (PROVENTIL) 2.5 mg/0.5 mL nebulizer solution Use 0.5 mL via nebulizer every 4 hours as needed for Wheezing/Shortness of Breath. albuterol HFA (PROAIR HFA) 90 mcg/actuation inhaler Inhale 2 Puffs as instructed. Take 2 puffs every 4 hours as needed and 15 minutes prior to exercise ferrous sulfate 325 mg (65 mg iron) tablet Take 325 mg by mouth twice daily. (Patient not taking: Reported on 03/27/2023) triamcinolone (KENALOG) 0.025 % ointment Apply 1 application to affected area twice daily as needed. FAMILY HISTORY Problem Relation Age of Onset Hypertension Mother Hypertension Father Lipids Father Asthma Father Alzheimer's Disease Maternal Grandmother Dementia Maternal Grandmother Prostate Cancer Maternal Grandfather other (cancer bone) Maternal Grandfather Asthma Paternal Grandmother Social History Tobacco Use Smoking status: Former Packs/day: 0.25 Years: 8.00 Pack years: 2.00 Types: Cigarettes Start date: 09/23/2003 Quit date: 09/23/2011 Years since quittin.5 Smokeless tobacco: Never Tobacco comments: ON RARE OCCASIONS Vaping Use Vaping Use: Never used Substance Use Topics Alcohol use: Yes Comment: rarely Drug use: No BP 138/86 Pulse 86 Temp 36.6 C (97.8 F) (Tympanic) Resp 18 Wt 98.3 kg (216 lb 12.8 oz) SpO2 97% BMI 31.11 kg/m Review of Systems Constitutional: Negative for chills, fever and malaise/fatigue. HENT: Negative for congestion, ear discharge, ear pain, sinus pain and sore throat. Eyes: Negative for blurred vision, pain, discharge and redness. Respiratory: Negative for cough, hemoptysis, sputum production, shortness of breath, wheezing and stridor. Cardiovascular: Negative for chest pain. Gastrointestinal: Negative for abdominal pain, diarrhea, nausea and vomiting. Musculoskeletal: Positive for back pain. Negative for falls, joint pain, myalgias and neck pain. Skin: Negative for itching and rash. Neurological: Negative for dizziness and headaches. Objective Physical Exam Constitutional: General: He is not in acute distress. Appearance: He is not diaphoretic. HENT: Head: Normocephalic. Nose: Nose normal. Eyes: Conjunctiva/sclera: Conjunctivae normal. Pupils: Pupils are equal, round, and reactive to light. Cardiovascular: Rate and Rhythm: Normal rate and regular rhythm. Heart sounds: Normal heart sounds. Pulmonary: Effort: Pulmonary effort is normal. No tachypnea, accessory muscle usage or respiratory distress. Breath sounds: Normal breath sounds. No stridor. No wheezing, rhonchi or rales. Musculoskeletal: Cervical back: Normal and normal range of motion. Thoracic back: Tenderness present. No swelling, edema, deformity, signs of trauma, lacerations or bony tenderness. Normal range of motion. No scoliosis. Lumbar back: No swelling, edema, deformity, signs of trauma, tenderness or bony tenderness. Normal range of motion. Negative right straight leg raise test and negative left straight leg raise test. Back: Comments: Pain with palpation to highlighted area. No redness. No drainage. No breaks in skin. No spinal tenderness. Able to rock on heels stand on toes Skin: General: Skin is warm and dry. Neurological: Mental Status: He is alert and oriented to person, place, and time. ASSESSMENT/PLAN: 1. Thoracic back pain, unspecified back pain laterality, unspecified chronicity - ICD9: 724.1, ICD10: M54.6 Diagnosed with left thoracic back pain. No spinal tenderness. No trauma. No saddle anesthesia or incontinence. Treat as muscle lumbar strain. Prednisone sent to pharmacy. Will not take with NSAIDs. Muscle relaxant sent to pharmacy. Will take at night only and do not drive or operate machinery. Patient was educated on supportive therapies. Patient will follow up with primary care provider as needed. Patient was instructed to immediately proceed to emergency room for any new, worsening, or symptoms lasting longer than anticipated. The patient's clinical presentation is otherwise unremarkable at this time. Based on exam and clinical finding, the patient is stable for discharge. Plan of care was discussed with patient. Patient verbalizes understanding and agrees to plan of care. This note was generated using [employer] software. It may contain errors in wording, punctuation, or spelling. Josh Pascual APRN.SUSI documented in this encounter [facility] 01-09-2023 Miscellaneous Notes Pt. Called back , he stated he was planning on giving B-12 injections to himself. Informed we would be more than willing to teach a friend or significant other on how to give injections. Pt. Said he would do some checking around for asstistance on administration. He didn't want to come in here to receive because he has to take 3 PTO hours every month from his employer and he doesn't want to have to do that. Darlene Camp LPN Left message on voicemail to contact office concerning b-12 injections. Darlene Camp LPN documented in this encounter [facility] 10-31-2022 Nurse Note Pt here for injection of B12. Given IM in right delt. Pt tolerated well. Sharon Grijalva LPN documented in this encounter [facility] 10-07-2022 Miscellaneous Notes Appointment notes updated. Joann Mai LPN documented in this encounter [facility] 09-19-2022 Miscellaneous Notes RX INSTRUCTIONS: Patient aware RX will be sent to pharmacy. No need to notify patient. Last OV: 03/06/22 with AT Last refill: 01/21/22 With 28 and 0 refills Follow up: No F/U scheduled in at this time Nora Jacobsen MA documented in this encounter [facility] 09-05-2022 Note HNO ID: [id number] Author: Sharon Grijalva LPN Service: ? Author Type: ? Type: Progress Notes Filed: 09/05/2022 2:05 PM Note Text: Pt here for injection of B12. Given IM in right . Pt tolerated well. Sharon Grijalva LPN [place] [facility] History of Presen t illness Narrative Pt here for injection of B12. Given IM in right . Pt tolerated well. Sharon Grijalva LPN documented in this encounter [facility] 08-08-2022 Note HNO ID: [id number] Author: Sharon Grijalva LPN Service: ? Author Type: ? Type: Progress Notes Filed: 08/08/2022 2:06 PM Note Text: Pt here for injection of B12. Given IM in left delt. Pt tolerated well. Sharon Grijalva LPN [facility] 08-08-2022 History of Presen t illness Narrative Pt here for injection of B12. Given IM in left delt. Pt tolerated well. Sharon Grijalva LPN documented in this encounter [facility] 07-11-2022 Nurse Note Pt here for injection of B12. Given IM in right delt. Pt tolerated well. Sharon Grijalva LPN documented in this encounter [facility] 06-13-2022 History of Presen t illness Narrative Pt here for injection of B12. Given IM in left delt. Pt tolerated well. Sharon Grijalva LPN documented in this encounter [facility] 05-20-2022 Instructions Coral Huffman MA - 05/20/2022 8:16 AM EDT Capsule Endoscopy Post Ingestion Patient Information Do not eat or drink for two (2) hours after you have swallowed the capsule endoscope. Two (2) hours after you have swallowed the capsule endoscope you may drink clear liquids like coffee and tea (without cream), cola drinks, apple juice, broth, and eat Jell-O or popsicles. Please do not consume anything red in color. You may also return to taking your routine medications. Four (4) hours after you have swallowed the capsule endoscope, you may return to your usual diet. You may return to your normal activities after ingesting the capsule. Please avoid vigorous exercise. You may operate electrical equipment while undergoing your capsule endoscopy. It is not likely that any household or office equipment will interfere with this examination. You may use cell phones, computers, remote TV appliances, microwaves, Btarget players and digital cameras. Because the capsule endoscopy equipment is somewhat ominous in appearance, we recommend you avoid the airport, bank and government buildings. Many museums use a similar technology for security, it is best to avoid these environments. Avoid other patients also undergoing capsule endoscopy. Although the transmission distance is limited, it is possible that your capsule images could be altered. You may not have an MRI (a test similar to an x-ray that uses magnets in the imaging process) while the capsule endoscope remains in your body. Do not schedule a capsule endoscope and an MRI for the same day. Should you require an MRI in the future and you have not seen the capsule evacuated in your stool, discuss this with your physician. An x-ray of your abdomen can show if the capsule has been evacuated. Remove your capsule endoscopy equipment at the time indicated by your procedure nurse. 1. Loosen the Velcro Belt (if you have adhesive patches on your abdomen-remove them). 2. The equipment will come off in one piece. 3. There is nothing to turn off or take apart. 4. Place all equipment in the bag provided. 5. Your nurse may ask you to return the equipment directly to the office. The capsule endoscope will pass naturally in your stool. It is not necessary to retrieve or return the capsule. The images are stored in the equipment you have worn on your belt. You may flush the used capsule down the bathroom toilet for disposal. In some instances, patients have passed the capsule endoscope during stooling while the capsule is still actively blinking . Do not be alarmed if this happens to you. You may dispose of the capsule in the same manner. If you stopped taking your oral Iron for this examination, you may resume taking it the day after your capsule examination. . Seek medical assistance if you develop extreme abdominal pain, bloating, fever, nausea and vomiting. These may be signs of obstruction and require medical intervention. During routine business hours you may call: After Business hours: [phone] have answering service contact your physician documented in this encounter [facility] 05-20-2022 History of Presen t illness Narrative Patient had a capsule endoscopy. Patient swallowed the capsule without any difficulty. Referring Provider: Reason for Capsule: Patient was given discharge instructions. Ingested capsule endoscope without difficulty at 8:15 AM on 05/20/2022. documented in this encounter [facility] 05-17-2022 History of Presen t illness Narrative Pt here for injection of B12. Given im in right delt. Pt tolerated well. For all other information regarding today, see today's OV note with Dr Heck. Sharon Grijalva LPN documented in this encounter [facility] 05-17-2022 History of Presen t illness Narrative Hematologic problem(s): 1) JEFF. 2) B12 deficiency. HPI: The patient is a 42-year-old male with past medical history significant for asthma and allergic rhinitis. Was evaluated for cataracts in 01/2021. Had long standing asthma and attributed to inhaled corticosteroids. Re-evaluated earlier this year. Was referred for blood test and MRI. Was told to see his PCP based on lab results. Component Latest Ref Rng & Units 03/07/2022 03/16/2022 WBC 3.70 - 11.00 k/uL 8.73 RBC 4.20 - 6.00 m/uL 4.43 Hemoglobin 13.0 - 17.0 g/dL 7.4 (L) Hematocrit 39.0 - 51.0 % 29.1 (L) MCV 80.0 - 100.0 fL 65.7 (L) MCH 26.0 - 34.0 pg 16.7 (L) MCHC 30.5 - 36.0 g/dL 25.4 (L) RDW-CV 11.5 - 15.0 % 21.2 (H) Platelet Count 150 - 400 k/uL 302 MPV 9.0 - 12.7 fL 10.5 Neut% % 64.9 Abs Neut (ANC) 1.45 - 7.50 k/uL 5.67 Lymph% % 23.7 Abs Lymph 1.00 - 4.00 k/uL 2.07 [place]% % 5.3 Abs [place] <0.87 k/uL 0.46 Eosin% % 4.5 Abs Eosin <0.46 k/uL 0.39 Baso% % 1.3 Abs Baso <0.11 k/uL 0.11 (H) Immature Gran % % 0.3 IMMATURE GRANS (ABS) <0.10 k/uL 0.03 NRBC /100 WBC 0.0 Absolute nRBC <0.01 k/uL <0.01 DTYPE Auto Protein, Total 6.3 - 8.0 g/dL 6.7 Albumin 3.9 - 4.9 g/dL 4.2 Calcium 8.5 - 10.2 mg/dL 9.1 Bilirubin, Total 0.2 - 1.3 mg/dL 0.3 Alkaline Phosphatase 38 - 113 U/L 145 (H) AST 14 - 40 U/L 23 ALT 10 - 54 U/L 20 Glucose 74 - 99 mg/dL 89 BUN 9 - 24 mg/dL 14 Creatinine 0.73 - 1.22 mg/dL 0.84 Sodium 136 - 144 mmol/L 143 Potassium 3.7 - 5.1 mmol/L 4.2 Chloride 97 - 105 mmol/L 107 (H) CO2 22 - 30 mmol/L 24 Anion Gap 9 - 18 mmol/L 12 eGFR >=60 mL/min/1.73m 110 Color Yellow Straw Clarity Clear Clear Glucose, Urine Negative Negative Bilirubin, Urine Negative Negative Ketones, Urine Negative Negative Specific [place], Ur 1.005 - 1.030 1.010 Hemoglobin/Blood,Ur Negative Negative pH, Urine 5.0 - 8.0 7.0 Protein, Urine Negative Negative Urobilinogen Negative Negative Nitrites Negative Negative Leukest Negative Negative WBC, Urine 0-5 /HPF 0-5 /HPF RBC, Urine 0-3 /HPF 0-3 /HPF Epithelial Cells /HPF Few Iron 41 - 186 ug/dL 12 (L) TIBC 232 - 386 ug/dL 433 (H) Transferrin Saturation 15 - 57 % 3 (L) Occult Blood, Stool Negative Positive (A) TSH 0.270 - 4.200 mIU/L 1.250 Vitamin B12 232-1,245 pg/mL 183 (L) Folate >4.7 ng/mL 7.4 Vitamin D 25 Hydroxy 31.0 - 80.0 ng/mL 51.9 Old records 05/22/2020 Hgb 9.9 g/dL. 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 Normal appetite. No reflux. Dysphagia for white rice and some breads forever. No nausea. No abdominal pain or bloating. Bowels move daily with formed stools. No signs overtly of GI bleeding. Taking oral iron for about a week. No side effects. No chronic PPI use. Presents for ongoing hematologic management. Interim history: He was started on B12 injections and received a course of parenteral iron. He had an EGD and colonoscopy on 03/28/2022. Gastric and duodenal mucosa was noted to be normal. Biopsies were obtained from the gastric mucosa. On colonoscopy was found to have nonbleeding internal hemorrhoids. The examination was otherwise normal. No specimens were collected. Repeat screening colonoscopy in 10 years was recommended. Pathology: A. Stomach, antrum , biopsy: - Gastric oxyntic-type mucosa with no significant pathologic change. - No intestinal metaplasia or morphologic evidence of Helicobacter pylori organisms. Not as fatigued in the evenings. Has noticed leg cramps resolved. Was diagnosed with lichen planus--multiple spots. Was told no cure and could be related to B12 deficiency and stress. Was given Rx for clobetasol. PMH, medications and allergies personally reviewed by me today. Any changes documented in appropriate section. ROS: Constitutional: Denies episodes of fever and night sweats. Not significantly fatigued. Neuro: Denies ROY, vertigo, dizziness and imbalance. Denies symptoms of neuropathy. HEENT: No recent change in voice, vision or hearing. Resp: Denies cough, wheeze and hemoptysis. Denies shortness of breath at rest. Denies COULTER. CVS: Denies exertional chest pain, PND, orthopnea and LE edema. GI: See HPI. : Denies dysuria or gross hematuria. No symptoms of bladder outlet obstruction. Endo: Denies hot flashes. Denies polyuria and polydipsia. Denies heat and cold intolerance. Musculoskeletal: Denies bone, back, joint and muscular pain. Derm: See above. Heme: Denies unusual bleeding and unexplained bruising. Psych: Normal mood. Social history: Non-smoker. Rare alcohol. One child--17 yo daughter. [place] for [employer] [facility] [employer]. Family history: Asthma. Father--Had B12 deficiency. Recently from kidney cancer at age 77. PGM--?Pernicious anemia. MGF--Prostate cancer. PHYSICAL EXAM: Vitals: Blood pressure 123/81, pulse 65, temperature 36.3 C (97.4 F), temperature source Temporal, weight 87.5 kg (193 lb). Well-appearing and in no acute distress. EYES: Sclerae are anicteric bilaterally. ENT: Oral mucosa is unremarkable. There is no sign of thrush or mucositis. LYMPHATIC: There is no palpable cervical, supraclavicular, axillary or inguinal adenopathy. RESPIRATORY: Inspiratory breath sounds are of normal intensity in all bui. No rales, wheezes or rhonchi. CARDIOVASCULAR: Rhythm is regular. Normal intensity S1/S2. ABDOMEN: The abdomen is nondistended. No organomegaly. No tenderness. Extremities: No swelling or edema. SKIN: Few scattered circular lesions--smaller ones dull erythema and larger one more psoriatic (right wrist). 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 No focal motor weakness. MUSCULOSKELETAL: No muscle wasting. LABS: Component Latest Ref Rng & Units 03/07/2022 04/12/2022 05/14/2022 WBC 3.70 - 11.00 k/uL 8.73 6.38 6.11 RBC 4.20 - 6.00 m/uL 4.43 4.61 5.22 Hemoglobin 13.0 - 17.0 g/dL 7.4 (L) 9.3 (L) 12.9 (L) Hematocrit 39.0 - 51.0 % 29.1 (L) 33.3 (L) 41.9 MCV 80.0 - 100.0 fL 65.7 (L) 72.2 (L) 80.3 MCH 26.0 - 34.0 pg 16.7 (L) 20.2 (L) 24.7 (L) MCHC 30.5 - 36.0 g/dL 25.4 (L) 27.9 (L) 30.8 RDW-CV 21.2 (H) 29.5 (H) Platelet Count 150 - 400 k/uL 302 171 209 MPV 10.5 Neut% % 64.9 59.7 60.0 Abs Neut (ANC) 1.45 - 7.50 k/uL 5.67 3.81 3.67 Lymph% % 23.7 29.6 30.6 Abs Lymph 1.00 - 4.00 k/uL 2.07 1.89 1.87 [place]% % 5.3 6.1 6.5 Abs [place] <0.87 k/uL 0.46 0.39 0.40 Eosin% % 4.5 3.0 2.0 Abs Eosin <0.46 k/uL 0.39 0.19 0.12 Baso% % 1.3 1.3 0.7 Abs Baso <0.11 k/uL 0.11 (H) 0.08 0.04 Immature Gran % % 0.3 0.3 0.2 IMMATURE GRANS (ABS) <0.10 k/uL 0.03 <0.03 <0.03 NRBC /100 WBC 0.0 0.0 0.0 Absolute nRBC <0.01 k/uL <0.01 <0.01 <0.01 Red Cell Morph Reviewed: see results of individual morphologies Anisocytosis Present Acanthocyte Few Ovalocytes Few RBC Fragments None Seen Few (A) DTYPE Auto Auto Iron 41 - 186 ug/dL 12 (L) 86 TIBC 232 - 386 ug/dL 433 (H) 336 Transferrin Saturation 15.0 - 57.0 % 3 (L) 25.6 Retic % 0.4 - 2.0 % 0.8 Abs Retic 0.018 - 0.100 M/uL 0.042 Vitamin B12 232-1,245 pg/mL 183 (L) Ferritin 30.3 - 565.7 ng/mL 113.0 ASSESSMENT/PLAN: (D50.0) Iron deficiency anemia due to chronic blood loss (primary encounter diagnosis) Assessment: -Patient had evidence of evolving anemia over the last 1 to 2 years prior to initial evaluation here.. -He had severe iron deficiency and heme positive stools. -EGD and colonoscopy revealed no source of GI blood loss. -Reviewed results and follow up plan. Plan: -Continue oral iron supplementation after capsule endoscopy as he tolerates it well. -Follow-up for capsule endoscopy. -CBC/Iron studies in 6 months. (E53.8) B12 deficiency Assessment: -EGD was unremarkable. -Biopsy revealed normal oxyntic type mucosa. Plan: -Continue folic acid. -Continue monthly B12 injections. -Could consider discontinuing B12 injections after a year and monitoring B12 periodically thereafter. Portions of this documentation were copied and pasted from previous office visit notes in order to provide a cohesive continuity of the history. The note has been reviewed and edited and updated as necessary. Gerald Heck, DO documented in this encounter [facility] 04-24-2022 History of Presen t illness Narrative NEW VIRTUAL VISIT I had a virtual visit with Mr. Flanagan today for evaluation of anemia. HISTORY: Patient was referred to me by Dr. Heck for ongoing anemia. Patient recently had an upper endoscopy and lower endoscopy by Dr. Hanson 03/28/2022. Upper endoscopy normal stomach biopsy unremarkable normal duodenum no specimens were collected. Colonoscopy normal, nonbleeding internal hemorrhoids no specimens collected.. Patient has been having ongoing anemia over the past few years recently heme positive stool test which led to the colonoscopy and EGD but no findings of GI bleed. Patient reports currently getting iron infusions and B12 injections. He reports he has a family history of pernicious anemia. Throughout his work-up for anemia patient denies ever having symptoms of upper GI complaints or lower GI complaints. The only symptom that he can report is fatigue but he thought this was due to aging. At times reports shortness of breath but he has underlining asthma reports his shortness of breath has never worsened. PAST MEDICAL HISTORY Diagnosis Date Anemia 03/08/2022 Environmental allergies Patella fracture 2012 Unspecified asthma(493.90) PAST SURGICAL HISTORY Procedure Laterality Date 2D ECHO (EXEP) 05/2016 EF=62% no valve issues COLONOSCOPY 03/28/2022 repeat in 10 years EGD W/O BRSH SPEC VARICIES INJ 03/28/2022 FRACTURE SURGERY PAST SURGICAL HISTORY OF 1995 ORIF right femur PAST SURGICAL HISTORY OF 2003 ORIF right ankle, plate and several screws STRESS TEST 05/2016 WNL FAMILY HISTORY Problem Relation Age of Onset Hypertension Mother Hypertension Father Lipids Father Asthma Father Alzheimer's Disease Maternal Grandmother Dementia Maternal Grandmother Prostate Cancer Maternal Grandfather other (cancer bone) Maternal Grandfather Asthma Paternal Grandmother Social History Tobacco Use Smoking status: Former Smoker Packs/day: 0.25 Years: 8.00 Pack years: 2.00 Types: Cigarettes Start date: 09/23/2003 Quit date: 09/23/2011 Years since quittin.5 Smokeless tobacco: Never Used Tobacco comment: ON RARE OCCASIONS Vaping Use Vaping Use: Never used Substance Use Topics Alcohol use: Yes Comment: rarely Drug use: No Current Outpatient Medications Medication Sig Dispense Refill folic acid 1 mg tablet Take 1 tablet by mouth once daily. 90 tablet 3 fluticasone (FLONASE) 50 mcg/actuation nasal spray SPRAY 2 SPRAYS INTO EACH NOSTRIL EVERY DAY 16 mL 11 triamcinolone (KENALOG) 0.025 % ointment Apply 1 application to affected area twice daily as needed. 15 g 0 fluticasone-salmeterol (ADVAIR DISKUS) 500-50 mcg/dose dsdv Inhale 1 Puff as instructed twice daily. 60 Each 11 SUMAtriptan (IMITREX) 50 mg tablet Take one tablet with onset of symptoms, can repeat in 2 hours, max dose is 200 mg/day. 30 tablet 3 albuterol (PROVENTIL) 2.5 mg/0.5 mL nebulizer solution Use 0.5 mL via nebulizer every 4 hours as needed for Wheezing/Shortness of Breath. 3 Vial 3 albuterol HFA (PROAIR HFA) 90 mcg/actuation inhaler Inhale 2 Puffs as instructed. Take 2 puffs every 4 hours as needed and 15 minutes prior to exercise 3 Inhaler 3 No current facility-administered medications for this visit. ALLERGIES Allergen Reactions Environmental [Othe* ANIMALS, DUST, GRASS PHYSICAL FINDINGS OF NOTE: General Normal, healthy, cooperative, in no acute distress Able to interact verbally by video conference Psych ORIENTATION: normal to time place, person and situation Mood/Affect: AFFECT AND MOOD: Normal Head/Neuro Normal size and shape Facial appearance normal Pulmonary respiratory effort normal Abdominal Not performed Skin abnormal lesions not visualized Motor patient seen sitting with Normal appearing strength and coordination IMPRESSION (D50.0) Iron deficiency anemia due to chronic blood loss (K92.2) Gastrointestinal hemorrhage, unspecified gastrointestinal hemorrhage type RECOMMENDATION: Assessment/Plan (D50.0) Iron deficiency anemia due to chronic blood loss (K92.2) Gastrointestinal hemorrhage, unspecified gastrointestinal hemorrhage type 1. Iron deficiency anemia due to chronic blood loss Patient has been having ongoing anemia over the past few years recently heme positive stool test which led to the colonoscopy and EGD but no findings of GI bleed. - d/t ongoing anemia will ordered small bowel endoscopy to r/o source of anemia. - CONSULT TO GASTROENTEROLOGY - CAPSULE ENDOSCOPY SMALL BOWEL; Future 2. Gastrointestinal hemorrhage, unspecified gastrointestinal hemorrhage type - CONSULT TO GASTROENTEROLOGY - CAPSULE ENDOSCOPY SMALL BOWEL; Future Follow up in office 3 months/PRN. Recommended to please call office/go to ER if fever, chills, chest pain, SOB, diarrhea, nausea, emesis, worsening abdominal pain, dehydration occurs I spent a total of 30 minutes on the date of the service which included preparing to see the patient, [id number] patient care, completing clinical documentation, obtaining and/or reviewing separately obtained history, performing a medically appropriate examination, counseling and educating the patient/family/caregiver, ordering medications, tests, or procedures, communicating with other HCPs (not separately reported), independently interpreting results (not separately reported), communicating results to the patient/family/caregiver, and care coordination (not separately reported). Alicia Pugh APRN.CNP April 24, 2022 2:09 PM documented in this encounter [facility] 04-15-2022 Miscellaneous Notes Pt notified. He will call back tomorrow. He should have GI consult now; he has already seen Surgery and had EGD and colonoscopy done, and no source of bleeding was identified Gloria Angel MD After review of message below, Mitra Gustafson CNP is aware of GI bleed and has placed referral to General Surgery. Agree with Mitra's recommendation. Do we need GI referral? Chioma Rivas Ma Patient scheduled for 1st dose of iron 04/17, when pt is also in for B12. Pt stated he will schedule the last 4 doses here in office that day. Pt is also aware of contact pcp regarding GI bleeding. Radha Mcgee Left message for pt to return our call. Radha Mcgee Blood counts have increased but not back to normal. Schedule for 5 more doses of iron sucrose and check CBC/Iron studies/Retic count/B12 level at 5th infusion. I saw results of EGD/colonosocpy. No source of GI bleed. Recommend PCP's team refer him to gastroenterology for further thoughts on source of GI bleeding. Gerald Heck DO documented in this encounter [facility] 04-08-2022 Instructions Odalys Resendiz PA-C - 04/08/2022 2:24 PM EDT -Follow up with Dr. Heck regarding upcoming laboratory studies and further workup of anemia. If GI source of blood loss still suspected, would recommend referral to Gastro for capsule endoscopy of small bowel The following instructions are important for you related to your office visit today with the [facility]. INSTRUCTIONS FOLLOWING A NORMAL COLONOSCOPY 10YR I discussed with you the findings of your colonoscopy. Since there were no worrisome abnormalities, I recommend you undergo repeat endoscopic screening every 10 years. This is the current recommendation for colon cancer screening. If you note bleeding, change in bowel habits, or other suspicious colon related symptoms before that time, those symptoms should be evaluated as necessary. If you note any additional difficulties, questions, or concerns, you should contact our office immediately @ [phone] and ask to be transferred to the General Surgery department. documented in this encounter [facility] 04-08-2022 History of Presen t illness Narrative FOLLOW UP VISIT - ENDOSCOPY NAME: Mohit Ugalde Panchito [facility] NO.: [id number] DATE OF SERVICE: 04/08/2022 : 1980 REFERRING PHYSICIAN: Gloria Angel MD Mohit is a patient I am following for iron deficiency anemia. Dr. Hanson performed upper and lower endoscopy on 03/28/22. The patient was found to have regular Z-line, normal appearing stomach and duodenum on upper endoscopy. Colonoscopy showed non-bleeding internal hemorrhoids, otherwise normal. Pathology demonstrated: FINAL DIAGNOSIS A. Stomach, antrum , biopsy: - Gastric oxyntic-type mucosa with no significant pathologic change. - No intestinal metaplasia or morphologic evidence of Helicobacter pylori organisms. The patient notes no complaints since the procedure. VITALS: Blood pressure 124/78, pulse 81, temperature 36.6 C (97.9 F), height 177.8 cm (5' 10 ), weight 88.9 kg (196 lb), SpO2 98 %. General: patient is alert, cooperative, pleasant and in no acute distress On examination, the abdomen is benign. Assessment IMPRESSION: iron deficiency anemia. No signs of bleeding on EGD or colonoscopy PLAN: The operative findings and pathology report were reviewed with the patient, and the patient has had the opportunity to ask questions and have questions answered. If the patient notes any problems or changes in bowel function, the patient should contact me immediately. Otherwise I recommend follow up colonoscopy in 10 years. HM updated and recall letter generated. -Follow up with Dr. Heck. If concern remains for GI source of blood loss, would recommend referral to GI for capsule endoscopy to evaluate the small bowel Patient verbalized understanding of all above and agreed with the plan Diagnoses: (D50.9) Iron deficiency anemia, unspecified iron deficiency anemia type (primary encounter diagnosis) I spent a total of 23 minutes on the date of the service which included preparing to see the patient, [id number] patient care, completing clinical documentation, obtaining and/or reviewing separately obtained history, communicating with other HCPs (not separately reported), independently interpreting results (not separately reported) and communicating results to the patient/family/caregiver. Odalys Resendiz PA-C documented in this encounter [facility] 03-26-2022 Nurse Note Patient presents with: Imm/Inj Pt is identified by name and birthdate: Yes. Allergies and medications reviewed. Latex allergy? No. Does this patient have: Unplanned weight loss or gain of greater than 10 pounds, or a change of appetite over the last year? No Does the patient have any concerns about safety in the home/falls? Not at risk for falls Has the patient fallen in the past year? No Does the patient have difficulty performing or completing routine daily living activities? No Does this patient have concerns about personal safety? No Is patient having pain? Pain: No=0 (pain 0 on a scale of 0-10). Health Maintenance: Reviewed and updated. Does patient have MyChart access or Caregiver proxy: yes Pt/Caregiver willingness and readiness to learn assessed: Yes. Barriers: none Cyanocobalamin injection administered,right deltoid, tolerated well, no immediate adverse reactions noted. Darlene Camp LPN documented in this encounter [facility] 03-18-2022 Miscellaneous Notes TC to patient who verbalizes understanding of providers message. Patient states he scheduled colonoscopy this morning and he has no questions at this time. PRECIOUS Ramirez Can you please call the patient and let him know that his urine test all came back to normal. There was no blood or bacteria noted in the urine. I would still plan for colonoscopy with general surgery. Please let me know if he has any questions. Thank you. Mitra Gustafson APRN.SUSI documented in this encounter [facility] 03-11-2022 Miscellaneous Notes Patient notified of results, verbalizes understanding of instructions. Cindy Alegria LPN Can you please call the patient and let him know that his stool sample did come back positive for blood. I recommend that he keep upcoming appointment with general surgery for endoscopy/colonoscopy. Please let me know if he has any questions. Thank you. Mitra Gustafson APRN.SUSI documented in this encounter [facility] 03-08-2022 History of Presen t illness Narrative HISTORY AND PHYSICAL Mohit Flanagan 1980 REFERRING PHYSICIAN: Gloria Angel MD CHIEF COMPLAINT: Consult (EGD and colonoscopy consult, anemia) and Follow Up (suture removal) HPI: The patient is a 42 year old male referred for endoscopy due to findings of anemia on routine laboratory studies. Patient was being seen in our office today for a nurse visit to have sutures removed following excision of a mass on his lower leg, see separate nursing notes for details of that visit. PCP office had contacted gen surg to see if patient could be evaluated for anemia and to set up EGD and colonoscopy, and patient was scheduled for this consultation on same date as patient currently in office and agreeable to consult visit. Patient's laboratory studies showed: Component Latest Ref Rng & Units 03/07/2022 WBC 3.70 - 11.00 k/uL 8.73 RBC 4.20 - 6.00 m/uL 4.43 Hemoglobin 13.0 - 17.0 g/dL 7.4 (L) Hematocrit 39.0 - 51.0 % 29.1 (L) MCV 80.0 - 100.0 fL 65.7 (L) MCH 26.0 - 34.0 pg 16.7 (L) MCHC 30.5 - 36.0 g/dL 25.4 (L) RDW-CV 11.5 - 15.0 % 21.2 (H) Platelet Count 150 - 400 k/uL 302 MPV 9.0 - 12.7 fL 10.5 Neut% % 64.9 Abs Neut (ANC) 1.45 - 7.50 k/uL 5.67 Lymph% % 23.7 Abs Lymph 1.00 - 4.00 k/uL 2.07 [place]% % 5.3 Abs [place] <0.87 k/uL 0.46 Eosin% % 4.5 Abs Eosin <0.46 k/uL 0.39 Baso% % 1.3 Abs Baso <0.11 k/uL 0.11 (H) Immature Gran % % 0.3 IMMATURE GRANS (ABS) <0.10 k/uL 0.03 NRBC /100 WBC 0.0 Absolute nRBC <0.01 k/uL <0.01 DTYPE Auto Component Latest Ref Rng & Units 03/07/2022 Iron 41 - 186 ug/dL 12 (L) TIBC 232 - 386 ug/dL 433 (H) Transferrin Saturation 15 - 57 % 3 (L) Mohit notes no colon complaints. Patient denies any change in bowel habits, weight changes, blood in stools, black tarry stools or abdominal pain. Denies family history of colon issues. The patient notes no upper GI complaints. Mohit has not undergone prior endoscopy. Patient denies any new complaints. In particular he denies any dizziness, lightheadedness or worsening fatigue. Denies tinnitus. Patient denies chest pain, shortness of breath or recent hospitalizations. Denies problems with sedation in the past. PAST MEDICAL HISTORY Diagnosis Date Anemia 03/08/2022 Environmental allergies Patella fracture 2012 Unspecified asthma(493.90) PAST SURGICAL HISTORY Procedure Laterality Date 2D ECHO (EXEP) 05/2016 EF=62% no valve issues PAST SURGICAL HISTORY OF 1995 ORIF right femur PAST SURGICAL HISTORY OF 2003 ORIF right ankle, plate and several screws STRESS TEST 05/2016 WNL Current Outpatient Medications Medication Sig ferrous sulfate 325 mg (65 mg iron) tablet Take 1 tablet by mouth twice daily with meals. fluticasone (FLONASE) 50 mcg/actuation nasal spray SPRAY 2 SPRAYS INTO EACH NOSTRIL EVERY DAY triamcinolone (KENALOG) 0.025 % ointment Apply 1 application to affected area twice daily as needed. fluticasone-salmeterol (ADVAIR DISKUS) 500-50 mcg/dose dsdv Inhale 1 Puff as instructed twice daily. SUMAtriptan (IMITREX) 50 mg tablet Take one tablet with onset of symptoms, can repeat in 2 hours, max dose is 200 mg/day. albuterol (PROVENTIL) 2.5 mg/0.5 mL nebulizer solution Use 0.5 mL via nebulizer every 4 hours as needed for Wheezing/Shortness of Breath. albuterol HFA (PROAIR HFA) 90 mcg/actuation inhaler Inhale 2 Puffs as instructed. Take 2 puffs every 4 hours as needed and 15 minutes prior to exercise No current facility-administered medications for this visit. ALLERGIES: Environmental [Other] PERSONAL HISTORY: Social History Tobacco Use Smoking status: Former Smoker Packs/day: 0.25 Years: 8.00 Pack years: 2.00 Types: Cigarettes Start date: 09/23/2003 Quit date: 09/23/2011 Years since quittin.4 Smokeless tobacco: Never Used Tobacco comment: ON RARE OCCASIONS Vaping Use Vaping Use: Never used Substance Use Topics Alcohol use: No Drug use: No FAMILY HISTORY: FAMILY HISTORY Problem Relation Age of Onset Hypertension Mother Hypertension Father Lipids Father Asthma Father Asthma Maternal Grandmother REVIEW OF SYMPTOMS: The review of systems data was entered by the nurse and reviewed by me Nursing Notes: Janna Hernández RN 03/08/2022 1:49 PM Signed REVIEW OF SYSTEMS: General: The patient denies fatigue, denies weight loss, denies weight gain, denies feeling hot, and denies feelings of cold. Eyes: The patient denies glaucoma, denies eye injury/surgery, does not wear glasses or contacts. Ear/Nose/Throat: The patient NOTES allergies, NOTES hayfever, denies ear infections, and denies bloody noses. Cardiovascular: The patient denies chest pain, denies heart disease, denies high blood pressure,denies cardiac stent, denies prior heart attack, denies irregular heart beat, denies high cholesterol, denies poor circulation, denies heart failure, other cardiac issues, denies claudication, denies cold feet, denies peripheral arterial stent. Respiratory: The patient denies tuberculosis, denies pneumonia, denies frequent cough, denies pulmonary embolism, NOTES shortness of breath, and denies coughing up blood. Gastrointestinal: The patient denies difficulty swallowing, denies acid reflux, denies ulcers, denies vomiting, denies jaundice/hepatitis, denies gallbladder problems, denies black or tarry stools, denies hemorrhoids, denies bleeding from rectum, denies diverticulitis, denies constipation, denies diarrhea, denies loss of stool control, and denies hernias. Kidney/Bladder: The patient denies kidney stones, denies urine infections, and denies bloody urine. Skin: The patient denies a history of skin cancer, denies bleeding/changing moles, and denies a history of skin rash. Neurologic: The patient denies a history of epilepsy/convulsions, denies headaches, denies head/spinal injuries, and denies stroke/TIA. Psychiatric: The patient denies psychiatric medications, denies depression, and denies voices, denies substance abuse. Endocrine: The patient denies thyroid disorders, denies diabetes, and denies hormonal problems. Hematologic: The patient denies a history of bruising, denies bleeding, and NOTES anemia, denies blood clots. Infections: The patient denies a history of measles and mumps, denies rheumatic fever, and denies sexually transmitted diseases. Musculoskeletal: The patient denies back pain/injury, denies back problems, denies sciatica, denies knee/foot trouble, denies arthritis, or denies gout. When was patient's last Mammogram screening? N/A Last Colonoscopy: None SUKUMAR Sprague RN 03/08/2022 1:54 PM Signed Patient here for suture removal from skin lesion removal to right lateral knee. Incision line is clean, dry and sutures are intact. Sutures removed, edges are well approximated. Area cleansed and steri strips applied. Wound care reviewed with Mohit. Advised that we would not have to come back to see us, unless he has any additional problems. Patient voiced understanding. Dr. Phillip reviewed pathology with patient on 02/26/2022 via phone call. Janna Hernández RN I have confirmed and edited as necessary, the PFSH and ROS obtained by others. Odalys Resendiz PA-C PHYSICAL EXAMINATION: General: The patient is 42 year old male, well nourished, well hydrated in no acute distress. The patient is oriented to time, place, and person. VITALS: Blood pressure 122/84, pulse 78, weight 86.2 kg (190 lb), SpO2 100 %. Body mass index is 27.26 kg/m . HEENT: Normal cephalic, ataumatic, pupils are equally round, sclera are anicteric, mucous membranes are moist, oropharynx is clear. Neck has no masses, asymmetry or lymphadenopathy. Respiratory: Clear to auscultation and percussion. Normal respiratory excursion and pattern. Cardiac: Examination is regular rate and rhythm. Normal S1/S2 Abdominal exam: Soft, nontender, with no palpable masses. No hepatosplenomegaly. No palpable hernias. Extremities: no clubbing, cyanosis or edema. No adenopathy. LABORATORY VALUES: As Noted RADIOLOGIC STUDIES: As Noted Assessment IMPRESSION: iron deficiency anemia PLAN: I have reviewed my findings with the surgeon. Will plan for upper and lower endoscopy. We discussed the risks and benefits of the planned endoscopy. I have informed the patient that complications can occur including failure to complete the endoscopy and perforation. The patient had the opportunity to ask questions concerning the planned endoscopy. My staff has also explained the procedure to the patient in understandable terms and has given the patient printed material concerning the procedure. The patient freely consents to surgery. The patient was offered a surgery/procedure at a [facility] facility. I have counseled the patient regarding the risk of exposure to and/or potential harm posed by the COVID-19 virus with having a surgery/procedure at this time versus the risk of delaying the surgery/procedure. It is not possible to know either the risk of delaying the surgery or procedure or chance of getting an infection with perfect accuracy, but a joint decision was made between the patient and myself to proceed at this time with endoscopy. I plan to use Golytely bowel preparation I have explained to the patient the difference between IV conscious sedation and MAC anesthesia - and I have offered either, according to the patient's wishes. I have explained that with IV conscious sedation there is no anesthesia provider available and therefore there is a limitation of the amount of IV medications that can be given and that the patient may wake up in the middle of the procedure and/or experience pain/discomfort during the procedure. Further discussion was done and the patient was given the opportunity to ask questions and all questions were answered. The patient chooses MAC anesthesia Diagnoses: (D50.9) Iron deficiency anemia, unspecified iron deficiency anemia type (primary encounter diagnosis) (M79.89) Mass of soft tissue of knee Consultation requested by Dr. Angel for an opinion regarding iron deficiency anemia. My final recommendations will be communicated back to the requesting physician by way of shared Medical record or letter to requesting physician via US mail. Odalys Resendiz PA-C documented in this encounter [facility] 03-08-2022 Miscellaneous Notes 03-28-2022 COLON LODI documented in this encounter [facility] 03-08-2022 Nurse Note Patient here for suture removal from skin lesion removal to right lateral knee. Incision line is clean, dry and sutures are intact. Sutures removed, edges are well approximated. Area cleansed and steri strips applied. Wound care reviewed with Mohit. Advised that we would not have to come back to see us, unless he has any additional problems. Patient voiced understanding. Dr. Phillip reviewed pathology with patient on 02/26/2022 via phone call. Janna Hernández RN REVIEW OF SYSTEMS: General: The patient denies fatigue, denies weight loss, denies weight gain, denies feeling hot, and denies feelings of cold. Eyes: The patient denies glaucoma, denies eye injury/surgery, does not wear glasses or contacts. Ear/Nose/Throat: The patient NOTES allergies, NOTES hayfever, denies ear infections, and denies bloody noses. Cardiovascular: The patient denies chest pain, denies heart disease, denies high blood pressure,denies cardiac stent, denies prior heart attack, denies irregular heart beat, denies high cholesterol, denies poor circulation, denies heart failure, other cardiac issues, denies claudication, denies cold feet, denies peripheral arterial stent. Respiratory: The patient denies tuberculosis, denies pneumonia, denies frequent cough, denies pulmonary embolism, NOTES shortness of breath, and denies coughing up blood. Gastrointestinal: The patient denies difficulty swallowing, denies acid reflux, denies ulcers, denies vomiting, denies jaundice/hepatitis, denies gallbladder problems, denies black or tarry stools, denies hemorrhoids, denies bleeding from rectum, denies diverticulitis, denies constipation, denies diarrhea, denies loss of stool control, and denies hernias. Kidney/Bladder: The patient denies kidney stones, denies urine infections, and denies bloody urine. Skin: The patient denies a history of skin cancer, denies bleeding/changing moles, and denies a history of skin rash. Neurologic: The patient denies a history of epilepsy/convulsions, denies headaches, denies head/spinal injuries, and denies stroke/TIA. Psychiatric: The patient denies psychiatric medications, denies depression, and denies voices, denies substance abuse. Endocrine: The patient denies thyroid disorders, denies diabetes, and denies hormonal problems. Hematologic: The patient denies a history of bruising, denies bleeding, and NOTES anemia, denies blood clots. Infections: The patient denies a history of measles and mumps, denies rheumatic fever, and denies sexually transmitted diseases. Musculoskeletal: The patient denies back pain/injury, denies back problems, denies sciatica, denies knee/foot trouble, denies arthritis, or denies gout. When was patient's last Mammogram screening? N/A Last Colonoscopy: None Janna Hernández RN documented in this encounter [facility] 03-08-2022 Miscellaneous Notes Mitra Gustafson NP called. She has been taking care of Mohit Flanagan. Mohit had labwork completed and there are abnormalities on it and they are concerned that he is bleeding and would like him scoped. Mohit has a nurse visit today and Mitra wanted to know if you could see him today and if not, possibly early next week? Janna Hernández RN documented in this encounter [facility] 03-08-2022 Miscellaneous Notes I called and spoke to this patient over the telephone regarding his recent lab results. I am concerned for bleeding due to drop in hemoglobin/CBC and very low iron. Stool and urine testing are still pending at this time. Have placed a consult for general surgery to discuss a possible scope. Patient is agreeable to this plan. All questions answered. Mitra Gustafson APRN.CNP documented in this encounter [facility] 03-06-2022 Instructions Mitra Gustafson APRN.CNP - 03/06/2022 4:48 PM EDT 1.) Get labs and urine testing completed. 2.) May make appointment with hematology. 3.) Keep scheduled appointments with Eye Dr and MRI. 4.) Follow up pending test results. documented in this encounter [facility] 03-06-2022 History of Presen t illness Narrative This is a 42 year old male who presents today with: Patient presents with: Results HISTORY OF PRESENT ILLNESS: Mohit Flanagan is a 42 year old male. Patient presents with: Results Here in the office to discuss lab results from [facility], order by Dr. Heron Araiza in ophthalmology. Has upcoming MRI. About 1 year ago tried to get lasik. Went to lasik center and could not get vision to 20/20. Was sent to Dr. Naranjo (ophthalmology) for reevaluation. Thumb print on cataracts. Believed to be due to asthma medication usage. 1 year went by went back to [facility]. Vision did not get worse, was discussing possible cataracts surgery. Sent to [facility] for evaluation with Dr. Araiza. Optic nerves looked damaged. Concerns for past brain trauma that are causing loss of vision. Got labs completed on Friday, Dr. Araiza called and instructed to follow up with PCP. Has had increased fatigue over the past year but still active. No abdominal pain or blood in the stool. MRI on 03/13/2022 and folllow up with Dr. Araiza on 03/14/2022. CBC showed RBC low 4.44, Hgb low 7.6, HCT low 29.0 MCV low 65.3, MCH low at 17.1, MCHC low at 26.2, RD space CV high at 21.0, RDW SD high at 48.0. Eosinophils elevated at 7.1, and basophils 1.5. Vitamin B12 low at 177. The following labs are still pending lead, arsenic, angio-converting enzyme, mercury, vitamin B1 thiamine. A1c normal at 5.1, folate normal at 9.70. PAST MEDICAL HISTORY: PAST MEDICAL HISTORY Diagnosis Date Environmental allergies Patella fracture 2012 Unspecified asthma(493.90) PAST SURGICAL HISTORY Procedure Laterality Date 2D ECHO (EXEP) 05/2016 EF=62% no valve issues PAST SURGICAL HISTORY OF 1995 ORIF right femur PAST SURGICAL HISTORY OF 2003 ORIF right ankle, plate and several screws STRESS TEST 05/2016 WNL ALLERGIES Environmental [Other] MEDICATIONS Current Outpatient Medications Medication Sig fluticasone (FLONASE) 50 mcg/actuation nasal spray SPRAY 2 SPRAYS INTO EACH NOSTRIL EVERY DAY triamcinolone (KENALOG) 0.025 % ointment Apply 1 application to affected area twice daily as needed. fluticasone-salmeterol (ADVAIR DISKUS) 500-50 mcg/dose dsdv Inhale 1 Puff as instructed twice daily. SUMAtriptan (IMITREX) 50 mg tablet Take one tablet with onset of symptoms, can repeat in 2 hours, max dose is 200 mg/day. (Patient not taking: Reported on 02/04/2022 ) albuterol (PROVENTIL) 2.5 mg/0.5 mL nebulizer solution Use 0.5 mL via nebulizer every 4 hours as needed for Wheezing/Shortness of Breath. albuterol HFA (PROAIR HFA) 90 mcg/actuation inhaler Inhale 2 Puffs as instructed. Take 2 puffs every 4 hours as needed and 15 minutes prior to exercise No current facility-administered medications for this visit. FAMILY HISTORY Problem Relation Age of Onset Hypertension Mother Hypertension Father Lipids Father Asthma Father Asthma Maternal Grandmother Social History Tobacco Use Smoking status: Former Smoker Packs/day: 0.25 Years: 8.00 Pack years: 2.00 Types: Cigarettes Start date: 09/23/2003 Quit date: 09/23/2011 Years since quittin.4 Smokeless tobacco: Never Used Tobacco comment: ON RARE OCCASIONS Vaping Use Vaping Use: Never used Substance Use Topics Alcohol use: No Drug use: No REVIEW OF SYSTEMS GENERAL: + Fatigue HEENT: Negative for frequent or significant headaches, No changes in hearing or vision. NECK: Negative for lumps, goiter, pain and significant neck swelling RESPIRATORY: Negative for cough, hemoptysis, wheezing, dyspnea or shortness of breath CARDIOVASCULAR: Negative for chest pain, leg swelling, orthopnea, or palpitations GI: No nausea, vomiting, or diarrhea/constipation. No hematochezia/melena. No heartburn or reflux symptoms. : No history of dysuria, frequency or incontinence MUSCULOSKELETAL: Negative for joint pain or swelling. SKIN: Negative for lesions, rash, and itching ENDOCRINE: Negative for cold or heat intolerance, polyuria, polydipsia and goiter NEURO: No history of headaches, syncope, paralysis, seizures or tremors MOOD: Negative for depression, anxiety, or suicidal ideation. EXAM: BP 138/82 Pulse 78 Resp 16 Wt 86.4 kg (190 lb 6.4 oz) BMI 27.32 kg/m PHYSICAL EXAM: General Appearance: Well appearing, alert, in no acute distress, well-hydrated, well nourished. Skin: Skin color, texture, turgor normal, no suspicious rashes or lesions. Head: Normocephalic, no masses, lesions, tenderness or abnormalities. Eyes: Anicteric sclera. Pupils are equally round and reactive to light. Extraocular movements are intact. Lungs: Lungs clear to auscultation. No wheezing, rhonchi, rales. Heart: RRR without murmur, gallop, or rubs. No ectopy. Abdomen: Normal abdominal exam, Abdomen soft, non-tender. Bowel sounds normal. No masses, organomegaly, Negative CVA tenderness. Extremities: No deformities, edema, skin discoloration, clubbing or cyanosis. Good capillary refill. Musculoskeletal: No joint swelling, deformity, or tenderness. Peripheral Pulses: Normal, Capillary refill <2secs, strong peripheral pulses, Pulses palpable. ASSESSMENT/PLAN: 1. Fatigue, unspecified type - ICD9: 780.79, ICD10: R53.83\ - Get the following labs completed to further evaluate acute causes. - Concerns for blood loss due to CBC. - Get stool and urine testing completed. - Schedule appointment with hematology. - Red flag symptoms given to patient, he verbalizes understanding when to seek emergency care. - CBC + DIFF - COMP METABOLIC PANEL - IRON + TIBC - FECAL OCCULT BLOOD TEST - TSH BLD - VITAMIN B12 BLOOD - FOLATE SERUM - VITAMIN D 25 HYDROXY - CONSULT TO HEMATOLOGY - URINALYSIS, WITH MICROSCOPIC Follow-up pending test results or sooner as needed. Discussed treatment plan and patient voices understanding. Patient's questions answered appropriately. Medications and potential side effects were discussed and patient voices understanding. Mitra Gustafson APRN.CNP This note was partially generated using [employer] voice recognition system. Note was reviewed for accuracy. There may be minor misspellings or grammar miscues with [employer] voice recognition. documented in this encounter [facility] 02-26-2022 Miscellaneous Notes Told patient pathology report. He will come to the office to have the nurses remove the sutures in a couple of weeks. Patient acknowledges above. documented in this encounter [facility] 02-24-2022 Procedure note Procedure(s): REM LESIO TRUNK,ARM,LEG 1.1 -2.0CM Pre-Procedure Diagnose(s): Skin lesion; Dysesthesia Post-Procedure Diagnose(s): Lesion of subcutaneous tissue; Dysesthesia Description of procedure: After informed consent was obtained, patient was brought to the procedure room. Appropriate time out protocol was followed. Patient was placed in the supine position. The site of the lesion was then cleansed with a sterile surgical skin preparation. Appropriate sterile surgical drapes were placed. The skin and subcutaneous tissues at the site were then infiltrated with local anesthetic. A skin incision was made at the site in an elliptical fashion with a 15 blade scalpel. At first it was thought that the lesion incorporated the dermal elements of the skin. However, with dissection and better analysis of the lesion, this is noted to be an entirely subcutaneous skin lesion. The incision was carried down to the subcutaneous tissues. Dissection was done to separate the skin lesion from the surrounding subcutaneous tissues. The lesion was excised sharply down to the subcutaneous tissues. The lesion was 1.9 cm in size. The tissue was then removed and placed in formalin to be forwarded to pathology for analysis. Hemostasis was controlled by pressure. The skin edges were then reapproximated with interrupted 2-0 nylon suture in a vertical mattress fashion. Sterile dressing was applied. Patient tolerated procedure well. Complications: none EBL- minimal documented in this encounter [facility] 02-24-2022 History of Presen t illness Narrative Here for excision of skin lesion of right lower extremity that is causing patient occasional pain. He tolerated procedure well. Will follow up in the clinic for suture removal in two weeks. I will call patient with results of pathology. UNIVERSAL PROTOCOL / SAFETY CHECKLIST Procedure to be Performed: Incisional biopsy of skin lesion. Sign In: A Moment of CARE was completed. Personnel directly involved with the procedure wore the appropriate PPE (Personal Protective Equipment). No special equipment needed. Patient/Surrogate Stated/Verified: PATIENT VERIFIED(optional for EMERGENT procedures): Patient name, Date of , Relevant allergies and The intended procedure Time Out Communication: Intended patient and procedure match the source documents. Consent documented and matches the intended procedure. No relevant labs, photos, and/or imaging studies were applicable for review. Correct side/site marked and visible. Medications required for procedure verified. No fire risk assessment and interventions applicable. No implant(s) inserted. Sign Out: SIGN OUT (optional for EMERGENT procedures): All specimen containers correctly labeled. No instruments, equipment or retained foreign bodies applicable. Post-procedure follow-up management communicated and Plan of Care Visit completed when applicable. Janna Hernández RN documented in this encounter [facility] 02-22-2022 Instructions Janna Hernández RN - 02/22/2022 1:57 PM EDT The following instructions are important for you related to your office visit today with the [facility]. Instructions After SKIN EXCISION-SUTURES You can remove the dressing in five days. If the dressing becomes soaked or had significant drainage, the dressing should be changed. If there is minor bleeding from this skin edge, you should hold pressure on the incision until the bleeding stops. If there is continued bleeding, you should contact our office immediately. You do not need to leave a dressing on the wound after five days. If the wound shows signs of redness, inflammation, or purulent drainage, you should contact our office immediately. After that time, you may wash the wound with gentle soap and water. The wound should not be immersed in a pool, bathtub, or even hot tub. Dr. Phillip will call you in 7-10 days with the pathology results. We prefer to check the incision and remove the stitches in our office when ready. Please make an appointment to return to our office in 14 days. Please do not remove the stitches yourself without approval from our office. If you note any additional difficulties, questions, or concerns, you should contact our office immediately @ [phone] and ask to be transferred to the General Surgery department. documented in this encounter [facility] 02-15-2022 History of Presen t illness Narrative Mohit Flanagan 1980 REFERRING PHYSICIAN: Francesco Burrows MD CHIEF COMPLAINT: Consult (MASS SOFT TISSUE OF KNEE) HPI: The patient is a 42 year old male presents with skin/soft tissue lesion of right knee area.. He has noted this lesion for years . Recently, it has been developing discomfort when pressure applied to it, this is a new symptom. He notes no increase in size. He denies history of skin cancers. PAST MEDICAL HISTORY Diagnosis Date Environmental allergies Patella fracture 2012 Unspecified asthma(493.90) PAST SURGICAL HISTORY Procedure Laterality Date 2D ECHO (EXEP) 05/2016 EF=62% no valve issues PAST SURGICAL HISTORY OF 1995 ORIF right femur PAST SURGICAL HISTORY OF 2003 ORIF right ankle, plate and several screws STRESS TEST 05/2016 WNL Current Outpatient Medications Medication Sig fluticasone (FLONASE) 50 mcg/actuation nasal spray SPRAY 2 SPRAYS INTO EACH NOSTRIL EVERY DAY triamcinolone (KENALOG) 0.025 % ointment Apply 1 application to affected area twice daily as needed. fluticasone-salmeterol (ADVAIR DISKUS) 500-50 mcg/dose dsdv Inhale 1 Puff as instructed twice daily. albuterol (PROVENTIL) 2.5 mg/0.5 mL nebulizer solution Use 0.5 mL via nebulizer every 4 hours as needed for Wheezing/Shortness of Breath. albuterol HFA (PROAIR HFA) 90 mcg/actuation inhaler Inhale 2 Puffs as instructed. Take 2 puffs every 4 hours as needed and 15 minutes prior to exercise SUMAtriptan (IMITREX) 50 mg tablet Take one tablet with onset of symptoms, can repeat in 2 hours, max dose is 200 mg/day. (Patient not taking: Reported on 02/04/2022 ALLERGIES: Environmental [Other] PERSONAL HISTORY: Social History Tobacco Use Smoking status: Former Smoker Packs/day: 0.25 Years: 8.00 Pack years: 2.00 Types: Cigarettes Start date: 09/23/2003 Quit date: 09/23/2011 Years since quittin.4 Smokeless tobacco: Never Used Tobacco comment: ON RARE OCCASIONS Vaping Use Vaping Use: Never used Substance Use Topics Alcohol use: No Drug use: No FAMILY HISTORY Problem Relation Age of Onset Hypertension Mother Hypertension Father Lipids Father Asthma Father Asthma Maternal Grandmother The review of systems data was entered by the nurse and reviewed by pa Nursing Notes: Yesenia Serrano RN 02/15/2022 2:24 PM Signed REVIEW OF SYSTEMS: General: The patient denies fatigue, denies weight loss, denies weight gain, denies feeling hot, and denies feelings of cold. Eyes: The patient denies glaucoma, denies eye injury/surgery, does not wear glasses or contacts. Ear/Nose/Throat: The patient NOTES allergies, NOTES hayfever, denies ear infections, and denies bloody noses. Cardiovascular: The patient denies chest pain, denies heart disease, denies high blood pressure,denies cardiac stent, denies prior heart attack, denies irregular heart beat, denies high cholesterol, denies poor circulation, denies heart failure, other cardiac issues, denies claudication, denies cold feet, denies peripheral arterial stent. Respiratory: The patient denies tuberculosis, denies pneumonia, denies frequent cough, denies pulmonary embolism, NOTES shortness of breath, and denies coughing up blood. Gastrointestinal: The patient denies difficulty swallowing, denies acid reflux, denies ulcers, denies vomiting, denies jaundice/hepatitis, denies gallbladder problems, denies black or tarry stools, denies hemorrhoids, denies bleeding from rectum, denies diverticulitis, denies constipation, denies diarrhea, denies loss of stool control, and denies hernias. Kidney/Bladder: The patient denies kidney stones, denies urine infections, and denies bloody urine. Skin: The patient denies a history of skin cancer, denies bleeding/changing moles, and denies a history of skin rash. Neurologic: The patient denies a history of epilepsy/convulsions, denies headaches, denies head/spinal injuries, and denies stroke/TIA. Psychiatric: The patient denies psychiatric medications, denies depression, and denies voices, denies substance abuse. Endocrine: The patient denies thyroid disorders, denies diabetes, and denies hormonal problems. Hematologic: The patient denies a history of bruising, denies bleeding, and denies anemia, denies blood clots. Infections: The patient denies a history of measles and mumps, denies rheumatic fever, and denies sexually transmitted diseases. Musculoskeletal: The patient denies back pain/injury, denies back problems, denies sciatica, denies knee/foot trouble, denies arthritis, or denies gout. When was patient's last Mammogram screening? N/A Last Colonoscopy: Yesenia Serrano RN PHYSICAL EXAMINATION: General: The patient is 42 year old male, well nourished, well hydrated in no acute distress. The patient is oriented to time, place, and person. VITALS: Blood pressure 130/80, pulse 88, temperature 36.3 C (97.4 F), height 177.8 cm (5' 10 ), weight 85.4 kg (188 lb 3.2 oz), SpO2 99 %. Body mass index is 27 kg/m . Head: Normal cephalic, atraumatic Eyes: pupils are equally round, sclera are clear/anicteric Neck is supple with no tracheal deviation Respiratory: Normal respiratory excursion and pattern. Abdominal exam: benign Extremities: no clubbing, cyanosis or edema. Skin: 1.7 cm lesion raised fleshy colored lesion of lateral aspect of right knee area, appears dermatofibroma-like, tender to palpation Neuro: non focal Psych: normal mood Assessment IMPRESSION: skin/soft tissue lesion of right knee area PLAN: I have discussed the above with the patient. I have offered incisional biopsy of this skin lesion (incisional for unlikely chance that this is sarcoma). I have explained the procedure to the patient. To be done as an office procedure with local anesthesia. I have counseled the patient as to the risks of the procedure, including but not limited to: infection, bleeding, injury to any blood vessels/nerves, scar tissue, wound infections, complications of anesthesia, etc. the patient understands. The patient wishes to proceed. I have answered all questions to the patient s satisfaction and the patient has no further questions. I have confirmed and edited as necessary, the PFSH and ROS obtained by others. Consultation requested by for an opinion regarding patient's presentation. My final recommendations will be communicated back to the requesting physician by way of shared Medical record or letter to requesting physician via US mail. . Diagnoses: (L98.9) Skin lesion (primary encounter diagnosis) Return to Clinic: The patient is instructed to follow-up with me as above. Medical Decision Making: Problems: Moderate: New problem with uncertain prognosis Risk: Minimal: Minimal risk from testing/treatment Medical Decision Making Level: 2 - Straightforward Janeth Phillip MD documented in this encounter [facility] 02-15-2022 Nurse Note REVIEW OF SYSTEMS: General: The patient denies fatigue, denies weight loss, denies weight gain, denies feeling hot, and denies feelings of cold. Eyes: The patient denies glaucoma, denies eye injury/surgery, does not wear glasses or contacts. Ear/Nose/Throat: The patient NOTES allergies, NOTES hayfever, denies ear infections, and denies bloody noses. Cardiovascular: The patient denies chest pain, denies heart disease, denies high blood pressure,denies cardiac stent, denies prior heart attack, denies irregular heart beat, denies high cholesterol, denies poor circulation, denies heart failure, other cardiac issues, denies claudication, denies cold feet, denies peripheral arterial stent. Respiratory: The patient denies tuberculosis, denies pneumonia, denies frequent cough, denies pulmonary embolism, NOTES shortness of breath, and denies coughing up blood. Gastrointestinal: The patient denies difficulty swallowing, denies acid reflux, denies ulcers, denies vomiting, denies jaundice/hepatitis, denies gallbladder problems, denies black or tarry stools, denies hemorrhoids, denies bleeding from rectum, denies diverticulitis, denies constipation, denies diarrhea, denies loss of stool control, and denies hernias. Kidney/Bladder: The patient denies kidney stones, denies urine infections, and denies bloody urine. Skin: The patient denies a history of skin cancer, denies bleeding/changing moles, and denies a history of skin rash. Neurologic: The patient denies a history of epilepsy/convulsions, denies headaches, denies head/spinal injuries, and denies stroke/TIA. Psychiatric: The patient denies psychiatric medications, denies depression, and denies voices, denies substance abuse. Endocrine: The patient denies thyroid disorders, denies diabetes, and denies hormonal problems. Hematologic: The patient denies a history of bruising, denies bleeding, and denies anemia, denies blood clots. Infections: The patient denies a history of measles and mumps, denies rheumatic fever, and denies sexually transmitted diseases. Musculoskeletal: The patient denies back pain/injury, denies back problems, denies sciatica, denies knee/foot trouble, denies arthritis, or denies gout. When was patient's last Mammogram screening? N/A Last Colonoscopy: Yesenia Serrano RN documented in this encounter [facility] Skin lesion- Primary Unspecified disorder of skin and subcutaneous tissue Dysesthesia Disturbance of skin sensation [facility] Diagnosis Fatigue, unspecified type- Primary [facility] Diagnosis Abnormal CBC- Primary Other abnormal blood chemistry Iron deficiency anemia, unspecified iron deficiency anemia type [facility] Diagnosis Iron deficiency anemia, unspecified iron deficiency anemia type- Primary Mass of soft tissue of knee [facility] Diagnosis B12 deficiency- Primary Other B-complex deficiencies Iron deficiency anemia, unspecified iron deficiency anemia type [facility] Diagnosis B12 deficiency- Primary Other B-complex deficiencies Iron deficiency anemia due to chronic blood loss Iron deficiency anemia secondary to blood loss (chronic) Iron malabsorption Other specified intestinal malabsorption [facility] Diagnosis Iron deficiency anemia, unspecified iron deficiency anemia type- Primary [facility] Diagnosis Iron deficiency anemia due to chronic blood loss- Primary Iron deficiency anemia secondary to blood loss (chronic) Iron deficiency anemia, unspecified iron deficiency anemia type [facility] Diagnosis Iron deficiency anemia due to chronic blood loss- Primary Iron deficiency anemia secondary to blood loss (chronic) Iron malabsorption Other specified intestinal malabsorption [facility] Diagnosis B12 deficiency- Primary Other B-complex deficiencies Iron deficiency anemia due to chronic blood loss Iron deficiency anemia secondary to blood loss (chronic) Iron malabsorption Other specified intestinal malabsorption [facility] Diagnosis Iron deficiency anemia, unspecified iron deficiency anemia type- Primary [facility] Diagnosis Iron deficiency anemia due to chronic blood loss- Primary Iron deficiency anemia secondary to blood loss (chronic) Iron malabsorption Other specified intestinal malabsorption B12 deficiency Other B-complex deficiencies Fatigue, unspecified type [facility] Diagnosis Iron deficiency anemia due to chronic blood loss- Primary Iron deficiency anemia secondary to blood loss (chronic) Iron malabsorption Other specified intestinal malabsorption B12 deficiency Other B-complex deficiencies Fatigue, unspecified type [facility] Diagnosis Iron deficiency anemia due to chronic blood loss- Primary Iron deficiency anemia secondary to blood loss (chronic) Gastrointestinal hemorrhage, unspecified gastrointestinal hemorrhage type [facility] Diagnosis Iron deficiency anemia due to chronic blood loss- Primary Iron deficiency anemia secondary to blood loss (chronic) Iron malabsorption Other specified intestinal malabsorption [facility] Diagnosis Iron deficiency anemia due to chronic blood loss Iron deficiency anemia secondary to blood loss (chronic) Gastrointestinal hemorrhage, unspecified gastrointestinal hemorrhage type [facility] Diagnosis Iron deficiency anemia due to chronic blood loss- Primary Iron deficiency anemia secondary to blood loss (chronic) Iron malabsorption Other specified intestinal malabsorption [facility] Diagnosis Iron deficiency anemia due to chronic blood loss- Primary Iron deficiency anemia secondary to blood loss (chronic) Iron malabsorption Other specified intestinal malabsorption B12 deficiency Other B-complex deficiencies [facility] Diagnosis Iron deficiency anemia due to chronic blood loss- Primary Iron deficiency anemia secondary to blood loss (chronic) B12 deficiency Other B-complex deficiencies [facility] Diagnosis B12 deficiency- Primary Other B-complex deficiencies [facility] Diagnosis Iron deficiency anemia due to chronic blood loss Iron deficiency anemia secondary to blood loss (chronic) Gastrointestinal hemorrhage, unspecified gastrointestinal hemorrhage type [facility] Diagnosis B12 deficiency- Primary Other B-complex deficiencies Iron deficiency anemia due to chronic blood loss Iron deficiency anemia secondary to blood loss (chronic) [facility] Diagnosis Recurrent cold sores Herpes simplex without mention of complication [facility] Diagnosis Iron deficiency anemia due to chronic blood loss- Primary Iron deficiency anemia secondary to blood loss (chronic) Iron malabsorption Other specified intestinal malabsorption B12 deficiency Other B-complex deficiencies Fatigue, unspecified type [facility] Diagnosis B12 deficiency- Primary Other B-complex deficiencies [facility] Diagnosis Thoracic back pain, unspecified back pain laterality, unspecified chronicity- Primary [facility] Diagnosis Lipoma, unspecified site- Primary [facility] Diagnosis Recurrent cold sores Herpes simplex without mention of complication [facility] Diagnosis Mild intermittent extrinsic asthma without complication [facility] Diagnosis Mild intermittent extrinsic asthma without complication documented in this encounter [facility] for referral (narrative)* Outpatient Procedure (Routine) - Closed Specialty Diagnoses / Procedures Referred By Larissa t Referred To Contact [facility] Diagnoses Iron deficiency anemia, unspecified iron deficiency anemia type Procedures EGD DIAGNOSTIC EGD DIAGNOSTIC EGD DIAGNOSTIC ESOPHAGOGASTRODUODENOSC OPY TRANSORAL DIAGNOSTIC ESOPHAGOGASTRODUODENOSC OPY TRANSORAL DIAGNOSTIC ESOPHAGOGASTRODUODENOSC OPY TRANSORAL DIAGNOSTIC Odalys Resendiz PA-C [address] [place] [address] [facility] [address] [address] Referral ID Status Reason Start Date Expiration Date V isits Requested Visits Authorized [id number] Closed Auto-Generate d Referral 03/08/2022 03/08/2023 1 1 * Outpatient Procedure (Routine) - Closed Specialty Diagnoses / Procedures Referred By Contac t Referred To Contact [facility] Diagnoses Iron deficiency anemia, unspecified iron deficiency anemia type Procedures COLONOSCOPY DIAGNOSTIC COLONOSCOPY DIAGNOSTIC COLONOSCOPY DIAGNOSTIC COLONOSCOPY FLX DX W/COLLJ SPEC WHEN PFRMD COLONOSCOPY FLX DX W/COLLJ SPEC WHEN PFRMD COLONOSCOPY FLX DX W/COLLJ SPEC WHEN PFRMD Odalys Resendiz PA-C [address] [place], [place] [address] [place] [address] [facility] [address] [address] Referral ID Status Reason Start Date Expiration Date V isits Requested Visits Authorized [id number] Closed Auto-Generate d Referral 03/08/2022 03/08/2023 1 1 [facility] for referral (narrative)* Outpatient Procedure (Routine) - Pending Review Specialty Diagnoses / Procedures Referred By Contac t Referred To Contact [facility] Diagnoses Iron deficiency anemia due to chronic blood loss Gastrointestinal hemorrhage, unspecified gastrointestinal hemorrhage type Procedures CAPSULE ENDOSCOPY SMALL BOWEL GI TRC IMG INTRALUMINAL ESOPHAGUS-ILEUM W/I&R Alicia Pugh, CORRECTIONAL CASEWORK SPECIALIST.FOOT GATHERER [address] [facility] [place] [address] [facility] [address] [address] Referral ID Status Reason Start Date Expiration Date Visits Requested Visits Authorized [id number] Pending Review Auto-Generat ed Referral 04/24/2022 04/24/2023 1 1 [facility] Reason for Referral Specialty Diagnoses / Procedures Referred By Contac t Referred To Contact Hematology Diagnoses Fatigue, unspecified type Procedures CONSULT TO HEMATOLOGY OFFICE/OUTPATIENT [facility] 60-74 MINUTES Mitra Gustafson APRN.CNP [address] [place] [address] Referral ID Status Reason Start Date Expiration Date Visits Requested Visits Authorized [id number] Pending Review PCP Requested Referral 03/06/2022 03/06/2023 1 1 Specialty Diagnoses / Procedures Referred By Contac t Referred To Contact General Surgery Diagnoses Abnormal CBC Procedures CONSULT TO GENERAL SURGERY OFFICE/OUTPATIENT [facility] 60-74 MINUTES Mitra Gustafson APRN.CNP [address] [place] [address] Referral ID Status Reason Start Date Expiration Date Visits Requested Visits Authorized [id number] Pending Review PCP Requested Referral 03/08/2022 03/08/2023 1 1 Specialty Diagnoses / Procedures Referred By Contac t Referred To Contact Gastroenterology Diagnoses Iron deficiency anemia due to chronic blood loss Gastrointestinal hemorrhage, unspecified gastrointestinal hemorrhage type Procedures CONSULT TO GASTROENTEROLOGY OFFICE/OUTPATIENT [facility] MDM 60-74 MINUTES Gloria Angel MD [address] [place] [address] Referral ID Status Reason Start Date Expiration Date Visits Requested Visits Authorized [id number] Pending Review PCP Requested Referral 04/15/2022 04/15/2023 1 1 Medications Administered Section Inactive Administered Medications - up to 3 most recent administrations Medication Order MAR Action Action Date Dose Rate Site cyanocobalamin 1,000 mcg injection 1,000 mcg, INTRAMUSCULAR, ONCE, 1 dose, On Fri03/26/22 at 1500 Given 03/26/2022 2:45 PM EDT 1,000 mcg Arm , Right Inactive Administered Medications - up to 3 most recent administrations Medication Order MAR Action Action Date Dose Rate Site cyanocobalamin 1,000 mcg injection 1,000 mcg, INTRAMUSCULAR, ONCE, 1 dose, On Fri04/02/22 at 1530 Given 04/02/2022 3:25 PM EDT 1,000 mcg Arm, Left iron sucrose 200 mg in NaCl 0.9% 100ml (VENOFER) 200 mg, INTRAVENOUS, at 400 mL/hr, Administer over 15 Minutes, ONCE, 1 dose, On Fri04/02/22 at 1530, Please conduct a 30 minute post dose observation. New Bag/Syringe/Bottl e 04/02/2022 3:25 PM EDT 200 mg 400 mL/hr Inactive Administered Medications - up to 3 most recent administrations Medication Order MAR Action Action Date Dose Rate Site iron sucrose 200 mg in NaCl 0.9% 100ml (VENOFER) 200 mg, INTRAVENOUS, at 400 mL/hr, Administer over 15 Minutes, ONCE, 1 dose, On Fri04/04/22 at 1530, Please conduct a 30 minute post dose observation. New Bag/Syringe/Bottle 04/04/2022 3:10 PM EDT 200 mg 400 mL/hr Inactive Administered Medications - up to 3 most recent administrations Medication Order MAR Action Action Date Dose Rate Site cyanocobalamin 1,000 mcg injection 1,000 mcg, INTRAMUSCULAR, ONCE, 1 dose, On Fri04/08/22 at 1500 Given 04/08/2022 2:53 PM EDT 1,000 mcg Arm, Right iron sucrose 200 mg in NaCl 0.9% 100ml (VENOFER) 200 mg, INTRAVENOUS, at 400 mL/hr, Administer over 15 Minutes, ONCE, 1 dose, On Fri04/08/22 at 1500, Please conduct a 30 minute post dose observation. New Bag/Syringe/Bottl e 04/08/2022 2:53 PM EDT 200 mg 400 mL/hr Inactive Administered Medications - up to 3 most recent administrations Medication Order MAR Action Action Date Dose Rate Site iron sucrose 200 mg in NaCl 0.9% 100ml (VENOFER) 200 mg, INTRAVENOUS, at 400 mL/hr, Administer over 15 Minutes, ONCE, 1 dose, On Fri04/12/22 at 1530, Please conduct a 30 minute post dose observation. New Bag/Syringe/Bottle 04/12/2022 3:31 PM EDT 200 mg 400 mL/hr Inactive Administered Medications - up to 3 most recent administrations Medication Order MAR Action Action Date Dose Rate Site cyanocobalamin 1,000 mcg injection 1,000 mcg, INTRAMUSCULAR, ONCE, 1 dose, On Fri04/17/22 at 1530 Given 04/17/2022 3:20 PM EDT 1,000 mcg Arm, Right iron sucrose 200 mg in NaCl 0.9% 100ml (VENOFER) 200 mg, INTRAVENOUS, at 400 mL/hr, Administer over 15 Minutes, ONCE, 1 dose, On Fri04/17/22 at 1530, Please conduct a 30 minute post dose observation. New Bag/Syringe/Bottl e 04/17/2022 3:19 PM EDT 200 mg 400 mL/hr Inactive Administered Medications - up to 3 most recent administrations Medication Order MAR Action Action Date Dose Rate Site iron sucrose 200 mg in NaCl 0.9% 100ml (VENOFER) 200 mg, INTRAVENOUS, at 400 mL/hr, Administer over 15 Minutes, ONCE, 1 dose, On Fri04/19/22 at 1530, Please conduct a 30 minute post dose observation. New Bag/Syringe/Bottle 04/19/2022 3:11 PM EDT 200 mg 400 mL/hr Inactive Administered Medications - up to 3 most recent administrations Medication Order MAR Action Action Date Dose Rate Site iron sucrose 200 mg in NaCl 0.9% 100ml (VENOFER) 200 mg, INTRAVENOUS, at 400 mL/hr, Administer over 15 Minutes, ONCE, 1 dose, On Fri04/24/22 at 1500, Please conduct a 30 minute post dose observation. New Bag/Syringe/Bottle 04/24/2022 3:01 PM EDT 200 mg 400 mL/hr Inactive Administered Medications - up to 3 most recent administrations Medication Order MAR Action Action Date Dose Rate Site cyanocobalamin 1,000 mcg injection 1,000 mcg, INTRAMUSCULAR, ONCE, 1 dose, On Fri05/17/22 at 1500 Given 05/17/2022 3:00 PM EDT 1,000 mcg Deltoid, Right Inactive Administered Medications - up to 3 most recent administrations Medication Order MAR Action Action Date Dose Rate Site cyanocobalamin 1,000 mcg injection 1,000 mcg, INTRAMUSCULAR, ONCE, 1 dose, On [place] 06/13/22 at 1400 Given 06/13/2022 1:58 PM EDT 1,000 mcg Deltoid, Left Inactive Administered Medications - up to 3 most recent administrations Medication Order MAR Action Action Date Dose Rate Site cyanocobalamin 1,000 mcg injection 1,000 mcg, INTRAMUSCULAR, ONCE, 1 dose, On [place] 07/11/22 at 1400 Given 07/11/2022 1:47 PM EDT 1,000 mcg Deltoid, Right Inactive Administered Medications - up to 3 most recent administrations Medication Order MAR Action Action Date Dose Rate Site cyanocobalamin 1,000 mcg injection 1,000 mcg, INTRAMUSCULAR, ONCE, 1 dose, On [place] 08/08/22 at 1400 Given 08/08/2022 2:00 PM EDT 1,000 mcg Deltoid, Left Inactive Administered Medications - up to 3 most recent administrations Medication Order MAR Action Action Date Dose Rate Site cyanocobalamin 1,000 mcg injection 1,000 mcg, INTRAMUSCULAR, ONCE, 1 dose, On [place] 09/05/22 at 1400 Given 09/05/2022 1:51 PM EDT 1,000 mcg Deltoid, Right Inactive Administered Medications - up to 3 most recent administrations Medication Order MAR Action Action Date Dose Rate Site cyanocobalamin 1,000 mcg injection 1,000 mcg, INTRAMUSCULAR, ONCE, 1 dose, On [place] 10/31/22 at 1400 Given 10/31/2022 1:55 PM EST 1,000 mcg Deltoid, Right Advance Directives Documents on File Type Date Recorded Patient Mapping Specialist Expl anation Advance Directive(s) 03/28/2022 6:14 AM Advance Directive(s) 03/28/2022 10:53 AM Documents on File Type Date Recorded Patient Mapping Specialist Expl anation Advance Directive(s) 03/28/2022 6:14 AM Advance Directive(s) 03/28/2022 10:53 AM Summary Purpose Family History No Family History Records Found Additional Source Comments Source Comments (unrecognize d section and content) In the event this informatio n is protected by the Federal Confidentiality of Alcohol and Drug Abuse Patient Records regulations: The Federal rules restrict any use of the information to criminally investigate or prosecute any alcohol or drug abuse patient.[facility] the event this information is protected by the Federal Confidentiality of Alcohol and Drug Abuse Patient Records regulations: The Federal rules restrict any use of the information to criminally investigate or prosecute any alcohol or drug abuse patient.[facility] HospitalIn the event this information is protected by the Federal Confidentiality of Alcohol and Drug Abuse Patient Records regulations: The Federal rules restrict any use of the information to criminally investigate or prosecute any alcohol or drug abuse patient.[facility]In the event this information is protected by the Federal Confidentiality of Alcohol and Drug Abuse Patient Records regulations: The Federal rules restrict any use of the information to criminally investigate or prosecute any alcohol or drug abuse patient.[facility] HospitalIn the event this information is protected by the Federal Confidentiality of Alcohol and Drug Abuse Patient Records regulations: The Federal rules restrict any use of the information to criminally investigate or prosecute any alcohol or drug abuse patient.[facility] HospitalIn the event this information is protected by the Federal Confidentiality of Alcohol and Drug Abuse Patient Records regulations: The Federal rules restrict any use of the information to criminally investigate or prosecute any alcohol or drug abuse patient.[facility] HospitalIn the event this information is protected by the Federal Confidentiality of Alcohol and Drug Abuse Patient Records regulations: The Federal rules restrict any use of the information to criminally investigate or prosecute any alcohol or drug abuse patient.[facility] HospitalIn the event this information is protected by the Federal Confidentiality of Alcohol and Drug Abuse Patient Records regulations: The Federal rules restrict any use of the information to criminally investigate or prosecute any alcohol or drug abuse patient.[facility] HospitalIn the event this information is protected by the Federal Confidentiality of Alcohol and Drug Abuse Patient Records regulations: The Federal rules restrict any use of the information to criminally investigate or prosecute any alcohol or drug abuse patient.[facility] HospitalIn the event this information is protected by the Federal Confidentiality of Alcohol and Drug Abuse Patient Records regulations: The Federal rules restrict any use of the information to criminally investigate or prosecute any alcohol or drug abuse patient.[facility] HospitalIn the event this information is protected by the Federal Confidentiality of Alcohol and Drug Abuse Patient Records regulations: The Federal rules restrict any use of the information to criminally investigate or prosecute any alcohol or drug abuse patient.[facility] HospitalIn the event this information is protected by the Federal Confidentiality of Alcohol and Drug Abuse Patient Records regulations: The Federal rules restrict any use of the information to criminally investigate or prosecute any alcohol or drug abuse patient.[facility] HospitalIn the event this information is protected by the Federal Confidentiality of Alcohol and Drug Abuse Patient Records regulations: The Federal rules restrict any use of the information to criminally investigate or prosecute any alcohol or drug abuse patient.[facility] HospitalIn the event this information is protected by the Federal Confidentiality of Alcohol and Drug Abuse Patient Records regulations: The Federal rules restrict any use of the information to criminally investigate or prosecute any alcohol or drug abuse patient.[facility] HospitalIn the event this information is protected by the Federal Confidentiality of Alcohol and Drug Abuse Patient Records regulations: The Federal rules restrict any use of the information to criminally investigate or prosecute any alcohol or drug abuse patient.[facility] HospitalIn the event this information is protected by the Federal Confidentiality of Alcohol and Drug Abuse Patient Records regulations: The Federal rules restrict any use of the information to criminally investigate or prosecute any alcohol or drug abuse patient.[facility] HospitalIn the event this information is protected by the Federal Confidentiality of Alcohol and Drug Abuse Patient Records regulations: The Federal rules restrict any use of the information to criminally investigate or prosecute any alcohol or drug abuse patient.[facility] HospitalIn the event this information is protected by the Federal Confidentiality of Alcohol and Drug Abuse Patient Records regulations: The Federal rules restrict any use of the information to criminally investigate or prosecute any alcohol or drug abuse patient.[facility] HospitalIn the event this information is protected by the Federal Confidentiality of Alcohol and Drug Abuse Patient Records regulations: The Federal rules restrict any use of the information to criminally investigate or prosecute any alcohol or drug abuse patient.[facility] HospitalIn the event this information is protected by the Federal Confidentiality of Alcohol and Drug Abuse Patient Records regulations: The Federal rules restrict any use of the information to criminally investigate or prosecute any alcohol or drug abuse patient.[facility] HospitalIn the event this information is protected by the Federal Confidentiality of Alcohol and Drug Abuse Patient Records regulations: The Federal rules restrict any use of the information to criminally investigate or prosecute any alcohol or drug abuse patient.[facility] HospitalIn the event this information is protected by the Federal Confidentiality of Alcohol and Drug Abuse Patient Records regulations: The Federal rules restrict any use of the information to criminally investigate or prosecute any alcohol or drug abuse patient.[facility] HospitalIn the event this information is protected by the Federal Confidentiality of Alcohol and Drug Abuse Patient Records regulations: The Federal rules restrict any use of the information to criminally investigate or prosecute any alcohol or drug abuse patient.[facility] HospitalIn the event this information is protected by the Federal Confidentiality of Alcohol and Drug Abuse Patient Records regulations: The Federal rules restrict any use of the information to criminally investigate or prosecute any alcohol or drug abuse patient.[facility] HospitalIn the event this information is protected by the Federal Confidentiality of Alcohol and Drug Abuse Patient Records regulations: The Federal rules restrict any use of the information to criminally investigate or prosecute any alcohol or drug abuse patient.[facility] HospitalIn the event this information is protected by the Federal Confidentiality of Alcohol and Drug Abuse Patient Records regulations: The Federal rules restrict any use of the information to criminally investigate or prosecute any alcohol or drug abuse patient.[facility] HospitalIn the event this information is protected by the Federal Confidentiality of Alcohol and Drug Abuse Patient Records regulations: The Federal rules restrict any use of the information to criminally investigate or prosecute any alcohol or drug abuse patient.[facility] HospitalIn the event this information is protected by the Federal Confidentiality of Alcohol and Drug Abuse Patient Records regulations: The Federal rules restrict any use of the information to criminally investigate or prosecute any alcohol or drug abuse patient.[facility] HospitalIn the event this information is protected by the Federal Confidentiality of Alcohol and Drug Abuse Patient Records regulations: The Federal rules restrict any use of the information to criminally investigate or prosecute any alcohol or drug abuse patient.[facility] HospitalIn the event this information is protected by the Federal Confidentiality of Alcohol and Drug Abuse Patient Records regulations: The Federal rules restrict any use of the information to criminally investigate or prosecute any alcohol or drug abuse patient.[facility] HospitalIn the event this information is protected by the Federal Confidentiality of Alcohol and Drug Abuse Patient Records regulations: The Federal rules restrict any use of the information to criminally investigate or prosecute any alcohol or drug abuse patient.[facility] HospitalIn the event this information is protected by the Federal Confidentiality of Alcohol and Drug Abuse Patient Records regulations: The Federal rules restrict any use of the information to criminally investigate or prosecute any alcohol or drug abuse patient.[facility] HospitalIn the event this information is protected by the Federal Confidentiality of Alcohol and Drug Abuse Patient Records regulations: The Federal rules restrict any use of the information to criminally investigate or prosecute any alcohol or drug abuse patient.[facility] HospitalIn the event this information is protected by the Federal Confidentiality of Alcohol and Drug Abuse Patient Records regulations: The Federal rules restrict any use of the information to criminally investigate or prosecute any alcohol or drug abuse patient.[facility] HospitalIn the event this information is protected by the Federal Confidentiality of Alcohol and Drug Abuse Patient Records regulations: The Federal rules restrict any use of the information to criminally investigate or prosecute any alcohol or drug abuse patient.[facility] HospitalIn the event this information is protected by the Federal Confidentiality of Alcohol and Drug Abuse Patient Records regulations: The Federal rules restrict any use of the information to criminally investigate or prosecute any alcohol or drug abuse patient.[facility] HospitalIn the event this information is protected by the Federal Confidentiality of Alcohol and Drug Abuse Patient Records regulations: The Federal rules restrict any use of the information to criminally investigate or prosecute any alcohol or drug abuse patient.[facility] HospitalIn the event this information is protected by the Federal Confidentiality of Alcohol and Drug Abuse Patient Records regulations: The Federal rules restrict any use of the information to criminally investigate or prosecute any alcohol or drug abuse patient.[facility] HospitalIn the event this information is protected by the Federal Confidentiality of Alcohol and Drug Abuse Patient Records regulations: The Federal rules restrict any use of the information to criminally investigate or prosecute any alcohol or drug abuse patient.[facility] HospitalIn the event this information is protected by the Federal Confidentiality of Alcohol and Drug Abuse Patient Records regulations: The Federal rules restrict any use of the information to criminally investigate or prosecute any alcohol or drug abuse patient.[facility] HospitalIn the event this information is protected by the Federal Confidentiality of Alcohol and Drug Abuse Patient Records regulations: The Federal rules restrict any use of the information to criminally investigate or prosecute any alcohol or drug abuse patient.[facility] HospitalIn the event this information is protected by the Federal Confidentiality of Alcohol and Drug Abuse Patient Records regulations: The Federal rules restrict any use of the information to criminally investigate or prosecute any alcohol or drug abuse patient.[facility] HospitalIn the event this information is protected by the Federal Confidentiality of Alcohol and Drug Abuse Patient Records regulations: The Federal rules restrict any use of the information to criminally investigate or prosecute any alcohol or drug abuse patient.[facility] HospitalIn the event this information is protected by the Federal Confidentiality of Alcohol and Drug Abuse Patient Records regulations: The Federal rules restrict any use of the information to criminally investigate or prosecute any alcohol or drug abuse patient.[facility] Reason for Visit (unrecogniz ed section and content) Reason Comments Results Reason Comments Results Reason Comments Results Orders Reason Comments Consult EGD and colonoscopy consult, anemia Follow Up suture removal Specialty Diagnoses / Procedures Referred By Contac t Referred To Contact General Surgery Diagnoses Mass of soft tissue of knee Procedures CONSULT TO GENERAL SURGERY OFFICE/OUTPATIENT [facility] 60-74 MINUTES Francesco Burrows MD [address] [place] [address] Referral ID Status Reason Start Date Expiration Date Visits Requested Visits Authorized [id number] Pending Review PCP Requested Referral 02/04/2022 02/04/2023 1 1 Reason Comments Results Orders Reason Comments Imm/Inj Reason Comments Non-Chemotherapy Treatment Specialty Diagnoses / Procedures Referred By Contac t Referred To Contact Diagnoses Iron deficiency anemia due to chronic blood loss Iron malabsorption Procedures IRON SUCROSE INJECTION PER 1 MG Gerald Heck DO [address] [place] [address] [facility], [facility] [place] [address] Referral ID Status Reason Start Date Expiration Date V isits Requested Visits Authorized [id number] Authorized 03/20/2022 11/23/2022 99 99 Reason Comments 03-28-2022 COLON LODI Reason Comments Refill Request Reason Comments Consult Reason Comments Follow Up EGD and colonoscopy Reason Comments Anemia Specialty Diagnoses / Procedures Referred By Contac t Referred To Contact Gastroenterology Diagnoses Iron deficiency anemia due to chronic blood loss Gastrointestinal hemorrhage, unspecified gastrointestinal hemorrhage type Procedures CONSULT TO GASTROENTEROLOGY OFFICE/OUTPATIENT [facility] 60-74 MINUTES Gloria Angel MD [address] [place] [address] Referral ID Status Reason Start Date Expiration Date Visits Requested Visits Authorized [id number] Pending Review PCP Requested Referral 04/15/2022 04/15/2023 1 1 Specialty Diagnoses / Procedures Referred By Contac t Referred To Contact Diagnoses Iron deficiency anemia due to chronic blood loss Iron malabsorption Procedures IRON SUCROSE INJECTION PER 1 MG Gerald Heck, DO [address] [facility] [place] [address] [facility], [facility] [place] [address] Reason Comments Established Patient Reason Comments Anemia Specialty Diagnoses / Procedures Referred By Contac t Referred To Contact [facility] Diagnoses Iron deficiency anemia due to chronic blood loss Gastrointestinal hemorrhage, unspecified gastrointestinal hemorrhage type Procedures CAPSULE ENDOSCOPY SMALL BOWEL GI TRC IMG INTRALUMINAL ESOPHAGUS-ILEUM W/I&R Alicia Pugh, [employer] GATH[employer]ER [address] [place] [address] [facility] [place] [address] [place] [address] Referral ID Status Reason Start Date Expiration Date V isits Requested Visits Authorized [id number] Closed Auto-Generate d Referral 04/24/2022 04/24/2023 1 1 Reason Comments Medication Request Reason Comments Pain Pt reported intermit tent mid back pain x2 days, denied chest pain, fall, injury. Reason Comments Lump Left side abdomen x 1-2 weeks Reason Onset Date Comments Refill Request 09/14/2023 Care Teams (unrecognized sec tion and content) Calibration Checker Relationship Specialty Start Date End Date Gloria Angel MD [address] [place], [place] [id number] PCP - General Family Practice 09/20/10 Calibration Checker Relationship Specialty Start Date End Date Gloria Angel MD [address] [place], [place] [id number] PCP - General Family Practice 09/20/10 Calibration Checker Relationship Specialty Start Date End Date Gloria Angel MD [address] [facility] [place] [address] PCP - General Family Practice 09/20/10 Calibration Checker Relationship Specialty Start Date End Date Gloria Angel MD [address] [facility] [place] [address] PCP - General Family Practice 09/20/10 Calibration Checker Relationship Specialty Start Date End Date Gloria Angel MD [address] [facility] [place] [address] PCP - General Family Practice 09/20/10 Calibration Checker Relationship Specialty Start Date End Date Gloria Angel MD [address] [facility] [place] [address] PCP - General Family Practice 09/20/10 Calibration Checker Relationship Specialty Start Date End Date Gloria Angel MD [address] [facility] [place] [address] PCP - General Family Practice 09/20/10 Calibration Checker Relationship Specialty Start Date End Date Gloria Angel MD [address] [facility] [place] [address] PCP - General Family Practice 09/20/10 Calibration Checker Relationship Specialty Start Date End Date Gloria Angel MD [address] [facility] [place] [address] PCP - General Family Practice 09/20/10 Calibration Checker Relationship Specialty Start Date End Date Gloria Angel MD [address] [facility] [place] [address] PCP - General Family Practice 09/20/10 Calibration Checker Relationship Specialty Start Date End Date Gloria Angel MD [address] [facility] [place] [address] PCP - General Family Practice 09/20/10 Calibration Checker Relationship Specialty Start Date End Date Gloria Angel MD [address] [facility] [place] [address] PCP - General Family Practice 09/20/10 Calibration Checker Relationship Specialty Start Date End Date Gloria Angel MD [address] [facility] [place] [address] PCP - General Family Practice 09/20/10 Calibration Checker Relationship Specialty Start Date End Date Gloria Angel MD [address] [facility] [place] [address] PCP - General Family Practice 09/20/10 Calibration Checker Relationship Specialty Start Date End Date Gloria Angel MD [address] [facility] [place] [address] PCP - General Family Practice 09/20/10 Calibration Checker Relationship Specialty Start Date End Date Gloria Angel MD [address] [facility] [place] [address] PCP - General Family Practice 09/20/10 Calibration Checker Relationship Specialty Start Date End Date Gloria Angel MD [address] [facility] [place] [address] PCP - General Family Practice 09/20/10 Calibration Checker Relationship Specialty Start Date End Date Gloria Angel MD [address] [facility] [place] [address] PCP - General Family Practice 09/20/10 Calibration Checker Relationship Specialty Start Date End Date Gloria Angel MD [address] [facility] [place] [address] PCP - General Family Practice 09/20/10 Calibration Checker Relationship Specialty Start Date End Date Gloria Angel MD [address] [facility] [place] [address] PCP - General Family Practice 09/20/10 Calibration Checker Relationship Specialty Start Date End Date Gloria Angel MD [address] [facility] [place] [address] PCP - General Family Practice 09/20/10 Calibration Checker Relationship Specialty Start Date End Date Gloria nAgel MD [address] [facility] [place] [address] PCP - General Family Medicine 09/20/10 Calibration Checker Relationship Specialty Start Date End Date Gloria Angel MD [address] [facility] [place] [address] PCP - General Family Medicine 09/20/10 Calibration Checker Relationship Specialty Start Date End Date Gloria Angel MD [address] [facility] [place] [address] PCP - General Family Medicine 09/20/10 Calibration Checker Relationship Specialty Start Date End Date Gloria Angel MD [address] [facility] [place] [address] PCP - General Family Medicine 09/20/10 Calibration Checker Relationship Specialty Start Date End Date Gloria Angel MD [address] [facility] [place] [address] PCP - General Family Medicine 09/20/10 Calibration Checker Relationship Specialty Start Date End Date Gloria Angel MD [address] [facility] [place] [address] PCP - General Family Medicine 09/20/10 Calibration Checker Relationship Specialty Start Date End Date Gloria Angel MD [address] [facility] [place] [address] PCP - General Family Medicine 09/20/10 Calibration Checker Relationship Specialty Start Date End Date Gloria Angel MD [address] [place] [address] PCP - General Family Medicine 09/20/10 (unrecognized sect ion and content) No Status Records Found INFORMATION SOURCE (unrecogn ized section and content) FOR RECORDS PERTAINING TO PATIENTS WHO ARE OR HAVE BEEN ENROLLED IN A CHEMICAL DEPENDENCY/SUBSTANCEABUSE PROGRAM, SOME INFORMATION MAY BE OMITTED. This clinical summary was aggregated from multiple sources. Caution should be exercised in using it in the provision of clinical care. This summary normalizes information from multiple sources, and as a consequence, information in this document may materially change the coding, format and clinical context of patient data. In addition, data may be omitted in some cases. CLINICAL DECISIONS SHOULD BE BASED ON THE PRIMARY CLINICAL RECORDS. [email or web address] provides no warranty or guarantee of the accuracy or completeness of information in this document.
[2023-12-04 17:12] LABS: Hematocrit 45.2 % (40-54); Hemoglobin 14.1 g/dL (13.0-16.5)
[2023-12-04 17:58] LABS: Vitamin B12 250 pg/mL (211-911)
[2023-12-04 18:52] LABS: ALB/GLOB Ratio 1.1 RATIO (0.9-2.4); AST(SGOT) 25 U/L (15-37); Alanine Aminotransfer ALT/SGPT 39 U/L (16-61); Albumin, Serum 3.5 g/dL (3.2-5.0); Alkaline Phosphatase 102 U/L (45-117); Anion Gap 4 (5-15); BUN 12 mg/dL (7-18); BUN/Creat Ratio 12.6 RATIO (10-20); Calcium,Total 8.1 mg/dL (8.5-10.1); Chloride 113 mmol/L (98-107); Cholesterol 118 mg/dL (200); Creatinine, Serum 0.95 mg/dL (0.70-1.30); EST Glomerular Filtration Rate 91 mL/min (>60); Est Glom Filt Rate - Afr Amer 110 mL/min (>60); Follicle Stimulating Hormone < 0.2 mIU/mL; Globulin 3.2 g/dL (2.2-4.2); Glucose 96 mg/dL (74-106); High Density Lipoprotein 33 mg/dL; Luteinizing Hormone < 0.2 mIU/mL; PSA,Total - Annual Screen 0.16 ng/mL (0.00-4.00); Potassium 3.7 mmol/L (3.5-5.1); Prolactin 10.9 ng/mL; Protein, Total 6.7 g/dL (6.4-8.2); Sodium Level 145 mmol/L (136-145); Thyroid Stim Hormone (TSH) 1.24 uIU/mL (0.358-3.74); Triglycerides 62 mg/dL; Very Low Density Lipoprotein 12 mg/dL (5-40)
[2023-12-15 10:07] LABS: DHEA Sulfate 46.1 ug/dL (71.6-375.4); Sex Hormone-binding Globulin 31.8 nmol/L (16.5-55.9); Testosterone, % Free 3.44 % (1.50-4.20); Testosterone, Total 1311 ng/dL (264-916)
== END | disposition home or self-care (01) ==
LOC: LAB 16:50
PROVIDERS: PCP Ophthalmology; Referring Provider Registered Nurse; Visit Provider Registered Nurse
DX: Z12.5 Encounter for screening for malignant neoplasm of prostate (principal); E29.1 Testicular hypofunction; R53.83 Other fatigue; R68.82 Decreased libido; R63.5 Abnormal weight gain; R35.0 Frequency of micturition; R39.16 Straining to void
CPT/HCPCS: 36415; 80053; 80061; 82607; 82627; 82670; 83001; 83002; 84146; 84153; 84270; 84402; 84403; 84443; 85014; 85018; 82626; G0103

== ENCOUNTER → 2024-12-25 | Outpatient (CLI) | payer OTHER, SELFPAY ==
[2024-12-25 08:34] LABS: Hematocrit 49.5 % (40-54); Hemoglobin 15.8 g/dL (13.0-16.5)
[2024-12-26 00:47] LABS: ALB/GLOB Ratio 1.5 RATIO (0.9-2.4); AST(SGOT) 19 U/L (15-37); Alanine Aminotransfer ALT/SGPT 38 U/L (16-61); Alkaline Phosphatase 79 U/L (45-117); Anion Gap 8 (5-15); BUN 18 mg/dL (7-18); BUN/Creat Ratio 18.3 RATIO (10-20); Calcium,Total 8.8 mg/dL (8.5-10.1); Chloride 110 mmol/L (98-107); Cholesterol 124 mg/dL (200); Creatinine, Serum 0.98 mg/dL (0.70-1.30); EST Glomerular Filtration Rate 87 mL/min (>60); Est Glom Filt Rate - Afr Amer 105 mL/min (>60); Follicle Stimulating Hormone < 0.2 mIU/mL; Globulin 2.7 g/dL (2.2-4.2); Glucose 92 mg/dL (74-106); High Density Lipoprotein 36 mg/dL; Luteinizing Hormone < 0.2 mIU/mL; PSA,Total - Annual Screen 0.17 ng/mL (0.00-4.00); Potassium 4.4 mmol/L (3.5-5.1); Protein, Total 6.7 g/dL (6.4-8.2); Sodium Level 141 mmol/L (136-145); Triglycerides 46 mg/dL; Very Low Density Lipoprotein 9 mg/dL (5-40)
[2024-12-29 10:08] LABS: PROLACTIN 11.2 ng/mL (3.9-22.7); Sex Hormone-binding Globulin 32.2 nmol/L (16.5-55.9); Testosterone, % Free 4.26 % (1.50-4.20); Testosterone, Free 40.94 ng/dL (5.00-21.00); Testosterone, Total 961 ng/dL (264-916)
== END | disposition home or self-care (01) ==
PROVIDERS: PCP Family Medicine; Referring Provider Registered Nurse; Visit Provider Registered Nurse
DX: E29.1 Testicular hypofunction (principal); R53.83 Other fatigue; Z12.5 Encounter for screening for malignant neoplasm of prostate; R68.82 Decreased libido; R63.5 Abnormal weight gain; R35.0 Frequency of micturition; R39.16 Straining to void
CPT/HCPCS: 36415; 80053; 80061; 82627; 82670; 83001; 83002; 84146; 84153; 84270; 84402; 84403; 84443; 85014; 85018; 82626; G0103

== ENCOUNTER → 2025-03-18 | Outpatient (CLI) | payer OTHER, SELFPAY | END | disposition home or self-care (01) | LOC: LAB 16:16 | PROVIDERS: PCP Family Medicine; Referring Provider Otolaryngology; Visit Provider Otolaryngology | DX: T78.40XA Allergy, unspecified, initial encounter (principal) | CPT/HCPCS: 36415; 86003 ==

== ENCOUNTER → 2025-07-18 | Outpatient (CLI) | payer OTHER, SELFPAY ==
[2025-07-18 16:53] LABS: Hematocrit 47.3 % (40-54); Hemoglobin 16.2 g/dL (13.0-16.5)
[2025-07-18 17:48] LABS: AST(SGOT) 45 U/L (<=37); Alanine Aminotransfer ALT/SGPT 43 U/L (<=46); Albumin, Serum 4.1 g/dL (3.5-5.0); Alkaline Phosphatase 77 U/L (40-129); Anion Gap 14 (5-15); BUN 22 mg/dL (4-19); BUN/Creat Ratio 15.9 RATIO (10-20); Calcium,Total 9.2 mg/dL (7.6-11.0); Carbon Dioxide 22.9 mmol/L (21.0-32.0); Chloride 103 mmol/L (98-108); Cholesterol 133 mg/dL (<=200); Globulin 2.4 g/dL (2.2-4.2); Glucose 72 mg/dL (70-99); Low Density Lipoprotein Calc. 80 mg/dL; PSA,Total - Annual Screen 0.16 ng/mL (0.02-4.00); Potassium 4.0 mmol/L (3.3-5.1); Triglycerides 49 mg/dL; Very Low Density Lipoprotein 10 mg/dL (5-40); cholesterol:hdl ratio screen 3.11
[2025-07-25 15:08] LABS: Testosterone, % Free 2.99 % (1.50-4.20); Testosterone, Free 44.76 ng/dL (5.00-21.00)
== END | disposition home or self-care (01) ==
LOC: LAB 16:15
PROVIDERS: PCP Family Medicine; Referring Provider Registered Nurse; Visit Provider Registered Nurse
DX: E29.1 Testicular hypofunction (principal); R53.83 Other fatigue; E78.9 Disorder of lipoprotein metabolism, unspecified; R68.82 Decreased libido; R35.0 Frequency of micturition
CPT/HCPCS: 36415; 80053; 80061; 82670; 84153; 84270; 84402; 84403; 85014; 85018; G0103